=== PATIENT | female | born 1970 | race Caucasian/White ===

== ENCOUNTER → 2016-10-08 | Outpatient (CLI) | payer OTHER ==
[~2016-10-08] MED LIST: ALBUAER2 INH; LANS30CA12 PO; PRED10TA PO; TIOTCAP INH; TRAZ50TA35 PO; [UNRECOGNIZED DRUG - CODE] PO
== END | disposition home or self-care (01) ==
LOC: C.PAPS 13:45
PROVIDERS: ATTEND Obstetrics & Gynecology
DX: N87.0 Mild cervical dysplasia (principal)

== ENCOUNTER → 2017-04-08 | Outpatient (CLI) | payer OTHER | END | disposition home or self-care (01) | LOC: C.PAPS 11:36 | PROVIDERS: ATTEND Obstetrics & Gynecology | DX: N87.0 Mild cervical dysplasia (principal) ==

== ENCOUNTER → 2017-04-10 | Outpatient (CLI) | payer OTHER | END | disposition home or self-care (01) | LOC: C.RDSM 11:18 | PROVIDERS: ATTEND Family Medicine Sports Medicine | DX: M54.5 Low back pain (principal) ==

== ENCOUNTER → 2017-07-11 | Outpatient (CLI) | payer OTHER ==
--- NOTE | 2017-07-11 09:27 | DIAGNOSTIC IMAGING REPORT ---
LUMBAR SPINE W/O CONTRAST CLINICAL HISTORY: 46 years-old Female with CHRONIC WORSENING LOWER BACK PAIN. COMPARISON: Lumbar spine radiograph 04/10/2017. TECHNIQUE: Multiplanar, multi sequence MRI of the lumbar spine was performed without intravenous contrast. FINDINGS: Vertebral body heights are maintained without compression deformity. Alignment is satisfactory. There is no focal bone marrow edema, soft tissue edema, acute intra-abdominal or intrapelvic abnormality identified. Uterus demonstrates a 7 x 4 mm cystic lesion of the posterior mid myometrium which may reflect a subendometrial cyst. Discrete junctional zone is not well seen on these images. Conus medullaris terminates at L1. Signal within the cord is within normal limits. T12-L1: No central canal or neural foraminal stenosis. L1-L2: No central canal or neural foraminal stenosis. L2-L3: No central canal or neural foraminal stenosis. Mild ligamentum flavum thickening. L3-L4: Mild intervertebral disc space narrowing with disc desiccation, minimal posterior spondylitic spurring and broad-based posterior disc bulge with mild facet arthrosis and ligament of flavum thickening. There is mild central canal narrowing and mild bilateral inferior foraminal stenosis. L4-L5: Mild intervertebral disc space narrowing with disc desiccation and posterior spondylitic spurring. Broad-based posterior disc bulge flattens the ventral thecal sac and causes mild central canal narrowing. Mild facet arthrosis and ligament of flavum thickening. There is mild bilateral inferior foraminal narrowing. L5-S1: Mild posterior intervertebral disc space narrowing with posterior spondylitic spurring, broad-based posterior disc bulge, mild facet arthrosis and ligament of flavum thickening. No central canal or foraminal narrowing. IMPRESSION: 1. Mild intervertebral disc space narrowing with facet arthrosis and ligamentum flavum thickening with broad-based posterior disc bulges at L3-L4 and L4-L5 resulting in mild central canal and mild bilateral foraminal stenosis. 2. No significant degenerative changes are otherwise seen within the lumbar spine. No high-grade central canal or foraminal narrowing. 3. No focal bone marrow edema or fracture. The above report was generated using voice recognition software. It may contain grammatical, syntax or spelling errors. Electronically signed by: Julio Nj M.D. 07/11/2017 9:26 AM Dictated Date/Time: 07/11/2017 8:09 AM
== END | disposition home or self-care (01) ==
LOC: C.MRIBC 07:26
PROVIDERS: ATTEND Family Medicine Sports Medicine
DX: M54.5 Low back pain (principal); M47.816 Spondylosis without myelopathy or radiculopathy, lumbar region; M51.26 Other intervertebral disc displacement, lumbar region

== ENCOUNTER → 2017-07-24 | Outpatient (CLI) | payer OTHER ==
[2017-07-24 17:23] LABS: BASO % 0.1 %; BASO ABS # 0.01 K/uL (0-0.2); COMPLETE YES; EOS % 0.2 %; HEMATOCRIT 41.1 % (37-47); IG% 0.2 %; LYMPH ABS # 1.17 K/uL (1.2-3.4); MEAN CELL VOLUME 98.6 fL (80-100); MEAN CORPUSCULAR HEMOGLOBIN 32.6 pg (25-34); MEAN CORPUSCULAR HGB CONC 33.1 g/dl (32-36); MEAN PLATELET VOLUME 9.9 fL (7.4-10.4); MONO % 3.7 %; NEUT % 86.8 %; PLATELET COUNT 364 K/uL (130-400); RED BLOOD COUNT 4.17 M/uL (4.2-5.4); WHITE BLOOD COUNT 12.97 K/uL (4.8-10.8)
[2017-07-24 17:34] LABS: ALT/SGPT 17 U/L (12-78); BLOOD UREA NITROGEN 14 mg/dl (7-18); BUN/CREATININE RATIO 18.9 (10-20); CALCIUM 8.8 mg/dl (8.5-10.1); CARBON DIOXIDE 24 mmol/L (21-32); CHLORIDE 104 mmol/L (98-107); CHOLESTEROL 117 mg/dl (0-200); CREATININE 0.76 mg/dl (0.60-1.20); GLUCOSE 103 mg/dl (70-99); POTASSIUM 3.9 mmol/L (3.5-5.1); SODIUM 135 mmol/L (136-145); TRIGLYCERIDES 102 mg/dl (0-150); VERY LOW DENSITY LIPOPROT CALC 20 mg/dl
[2017-07-24 17:41] LABS: ALB/GLOB RATIO 0.9 (0.9-2); ALKALINE PHOSPHATASE 59 U/L (45-117); AST/SGOT 10 U/L (15-37); CHOLESTEROL/HDL RATIO 2.5; HDL CHOLESTEROL 46 mg/dl; LDL CHOLESTEROL CALCULATED 51 mg/dl; THYROID STIMULATING HORMONE 0.376 uIu/ml (0.300-4.500)
== END | disposition home or self-care (01) ==
LOC: C.LABBFT 11:58
PROVIDERS: ATTEND Physician Assistant Medical
DX: D72.829 Elevated white blood cell count, unspecified (principal)

== ENCOUNTER → 2017-09-01 | Outpatient (CLI) | payer OTHER ==
[2017-09-01 12:38] LABS: BASO % 0.4 %; BASO ABS # 0.03 K/uL (0-0.2); EOS % 0.4 %; EOS ABS # 0.03 K/uL (0-0.5); HEMATOCRIT 43.5 % (37-47); HEMOGLOBIN 14.5 g/dL (12.0-16.0); IG# 0.03 K/uL (0.00-0.02); LYMPH % 11.1 %; LYMPH ABS # 0.92 K/uL (1.2-3.4); MEAN CELL VOLUME 96.5 fL (80-100); MEAN CORPUSCULAR HEMOGLOBIN 32.2 pg (25-34); MEAN CORPUSCULAR HGB CONC 33.3 g/dl (32-36); MEAN PLATELET VOLUME 9.9 fL (7.4-10.4); MONO % 4.1 %; MONO ABS # 0.34 K/uL (0.11-0.59); NEUT % 83.6 %; NEUT ABS # 6.97 K/uL (1.4-6.5); PLATELET COUNT 326 K/uL (130-400); RED CELL DISTRIBUTION WIDTH CV 14.9 % (11.5-14.5); RED CELL DISTRIBUTION WIDTH SD 52.7 fL (36.4-46.3); WHITE BLOOD COUNT 8.32 K/uL (4.8-10.8)
[2017-09-01 12:57] LABS: BLOOD UREA NITROGEN 13 mg/dl (7-18); CALCIUM 9.4 mg/dl (8.5-10.1); CARBON DIOXIDE 24 mmol/L (21-32); CREATININE 0.71 mg/dl (0.60-1.20); GLUCOSE 96 mg/dl (70-99); POTASSIUM 3.7 mmol/L (3.5-5.1); SODIUM 139 mmol/L (136-145)
== END | disposition home or self-care (01) ==
LOC: C.LABBFT 08:56
PROVIDERS: ATTEND Physician Assistant Medical
DX: D72.829 Elevated white blood cell count, unspecified (principal)

== ENCOUNTER → 2017-09-12 | Outpatient (CLI) | payer OTHER ==
[~2017-09-12] MED LIST changes: +CETI10TA84 PO; +FLVHFA44 INH; +RANI300T2 PO; +UMEC1AER INH; +VNTHFA/IN INH
--- NOTE | 2017-09-15 07:40 | MAMMOGRAPHY REPORT ---
BILATERAL DIGITAL SCREENING MAMMOGRAM TOMOSYNTHESIS WITH CAD: 09/12/2017 CLINICAL HISTORY: Routine screening. Patient has no complaints. TECHNIQUE: Breast tomosynthesis in addition to standard 2D mammography was performed. Current study was also evaluated with a Computer Aided Detection (CAD) system. COMPARISON: Comparison is made to exams dated: 10/19/2015 mammogram, 05/19/2014 mammogram, 04/15/2013 ma mmogram, 09/03/2012 mammogram, 09/03/2012 ultrasound, and 01/21/2011 ultrasound - [facility]. BREAST COMPOSITION: The tissue of both breasts is heterogeneously dense, which may obscure small mas ses. FINDINGS: No suspicious masses, calcifications, or areas of architectural distortion are noted in ei ther breast. There has been no significant interval change compared to prior exams. Again noted are numerous small round/oval circumscribed and partially circumscribed masses scattered throughout both breasts, which are considered benign given the multiplicity and bilaterality and likely represent cys ts, with cysts seen on prior ultrasound exams. IMPRESSION: ACR BI-RADS CATEGORY 2: BENIGN There is no mammographic evidence of malignancy. A 1 year screening mammogram is recommended. The pa tient will receive written notification of the results. Approximately 10% of breast cancers are not detected with mammography. A negative mammographic report should not delay biopsy if a clinically suggestive mass is present. Rohini Betancourt M.D. /:09/12/2017 15:00:56 Wholesale Representative: Chelsie Lobo, [facility] letter sent: Normal 1/2 BI-RADS Code: ACR BI-RADS Category 2: Benign
== END | disposition home or self-care (01) ==
LOC: C.MAMM 08:33
PROVIDERS: ATTEND Obstetrics & Gynecology
DX: Z12.31 Encounter for screening mammogram for malignant neoplasm of breast (principal)

== ENCOUNTER → 2017-09-12 | Outpatient (CLI) | payer OTHER ==
--- NOTE | 2017-09-12 12:01 | DIAGNOSTIC IMAGING REPORT ---
TWO VIEW CHEST CLINICAL HISTORY: Cough. FINDINGS: PA and lateral chest radiographs are compared to study dated 10/16/2015. The cardiomediastinal silhouette is unremarkable. The lungs and pleural spaces are clear. There is no pneumothorax. The bony thorax appears intact. Fusion hardware is noted in the lower cervical spine. IMPRESSION: No active disease in the chest. Electronically signed by: Geovani Wild M.D. 09/12/2017 12:00 PM Dictated Date/Time: 09/12/2017 11:59 AM
== END | disposition home or self-care (01) ==
LOC: C.RAD1850 11:42
PROVIDERS: ATTEND Nurse Practitioner
DX: R05 Cough (principal)

== ENCOUNTER → 2017-09-18 | Outpatient (CLI) | payer OTHER ==
[~2017-09-18] MED LIST changes: -ALBUAER2 INH; +OXYC-57 PO; -PRED10TA PO; -TIOTCAP INH; -[UNRECOGNIZED DRUG - CODE] PO
== END | disposition home or self-care (01) ==
LOC: C.LAB1850 09:50
PROVIDERS: ATTEND Obstetrics & Gynecology
DX: Z01.818 Encounter for other preprocedural examination (principal)

== ENCOUNTER 2017-09-19 07:35 | Observation (INO) | payer OTHER ==
[2017-09-12 09:31] VITALS: Ht 149.9 cm; Wt 55.7 kg
--- NOTE | 2017-09-12 09:59 | PAT Medication Instructions ---
Service Date Sep 12, 2017. Current Home Medication List Albuterol Hfa (Ventolin Hfa), 2-4 PUFFS INH Q6H PRN for SOB/Wheezing Cetirizine (Zyrtec), 10 MG PO QPM Fluticasone Propionate (Flovent Hfa), 2 PUFFS INH BID Lansoprazole (Prevacid), 30 MG PO QAM Ranitidine Hcl (Zantac), 300 MG PO HS Trazodone Hcl (Trazodone), 50-100 MG PO HS Umeclidinium-Vilanterol (Anoro Ellipta 62.5-25 Mcg/INH), 1 PUFF INH QAM Medication Instructions For Your Scheduled Surgery - Take the following medications the morning of surgery with a sip of water: Umeclidinium-Vilanterol (Anoro Ellipta 62.5-25 Mcg/INH), 1 PUFF INH QAM Lansoprazole (Prevacid), 30 MG PO QAM Fluticasone Propionate (Flovent Hfa), 2 PUFFS INH BID Albuterol Hfa (Ventolin Hfa), 2-4 PUFFS INH Q6H PRN for SOB/Wheezing (if needed , and bring it with you to the hospital) - Take the following medications as scheduled the night before surgery: Ranitidine Hcl (Zantac), 300 MG PO HS Trazodone Hcl (Trazodone), 50-100 MG PO HS Albuterol Hfa (Ventolin Hfa), 2-4 PUFFS INH Q6H PRN for SOB/Wheezing (if needed) Cetirizine (Zyrtec), 10 MG PO QPM Fluticasone Propionate (Flovent Hfa), 2 PUFFS INH BID If you have any questions please call us at [phone] or [phone] or [phone]
[2017-09-12 10:37] LABS: BASO % 0.2 %; BASO ABS # 0.03 K/uL (0-0.2); EOS % 0.6 %; EOS ABS # 0.08 K/uL (0-0.5); HEMATOCRIT 43.6 % (37-47); HEMOGLOBIN 15.1 g/dL (12.0-16.0); IG# 0.04 K/uL (0.00-0.02); LYMPH % 8.1 %; MEAN CELL VOLUME 95.4 fL (80-100); MEAN CORPUSCULAR HGB CONC 34.6 g/dl (32-36); MEAN PLATELET VOLUME 9.7 fL (7.4-10.4); MONO % 2.1 %; MONO ABS # 0.28 K/uL (0.11-0.59); NEUT % 88.7 %; PLATELET COUNT 325 K/uL (130-400); RED CELL DISTRIBUTION WIDTH CV 15.1 % (11.5-14.5); RED CELL DISTRIBUTION WIDTH SD 52.6 fL (36.4-46.3); WHITE BLOOD COUNT 13.53 K/uL (4.8-10.8)
[2017-09-19] VITALS (9 sets, daily range): BP systolic 118–133; BP diastolic 70–86; PULSE 80–98; TEMP 36.7–37; O2SAT 94–98
[~2017-09-19] VITALS: Ht 149.9 cm; Wt 55.7 kg
[~2017-09-19 07:35] MED LIST changes: +ACETAMINOPHEN 1000 MG/100 ML IV IV ONE; +ATROPINE SULFATE 0.1 MG/ML 5ML SYR IV PRN; +CEFAZOLIN 2000MG IV PUSH 15 ML IV SCH; +EpHEDrine SULFATE INJ 50 MG/ML AMP IV PRN; +HYDROmorphone INJ 1 MG/ML SYR IV PRN; +LACTATED RINGER'S 1000ML 1,000 ML IV SCH; +ONDANSETRON INJ 2 MG/ML 2 ML VIAL IV PRN; -OXYC-57 PO; +PROMETHAZINE HCL INJ 12.5 MG in SODIUM CHLORIDE 0.9% 50ML 50 ML IV PRN; +ROCURONIUM BROMIDE 10 MG/ML 5 ML VIAL IV ONE
[2017-09-19] MEDS ORDERED: LIDOCAINE HCL 2% 2 ML VIAL (20MG/ML) ONE (09:17)
[2017-09-19] MEDS ORDERED: PROPOFOL IV EMULSION 10 MG/ML 20 ML VIAL IV ONE (09:17)
[2017-09-19] MEDS ORDERED: MIDAZOLAM HCL 1 MG/ML 2ML VIAL ONE (09:17)
[2017-09-19] MEDS ORDERED: FENTANYL CITRATE INJ 50 MCG/1 ML 2 ML VIAL ONE ×3 (09:17→12:50)
[2017-09-19] MEDS ORDERED: ROCURONIUM BROMIDE 10 MG/ML 5 ML VIAL IV ONE (09:17)
--- NOTE | 2017-09-19 10:37 | History & Physical Bridge Note ---
H&P Re-Evaluation Bridge Note: I have examined the patient, reviewed the History & Physical and in the interval since the performance of the History & Physical I have noted the following changes of clinical significance: No changes noted
[2017-09-19] MEDS ORDERED: BUPIVACAINE 0.5 % 5 MG/1 ML MPF 30ML VIAL ONE (10:41)
[2017-09-19] MEDS ORDERED: METHYLENE BLUE 0.5% 10 ML VIAL ONE (10:41)
[2017-09-19] MEDS ORDERED: DEXAMETHASONE SOD INJ 4 MG/ML VIAL ONE (12:03)
[2017-09-19] MEDS ORDERED: LABETALOL HCL IV 5 MG/ML 20ML IV ONE (12:03)
[2017-09-19] MEDS ORDERED: SUCCINYLCHOLINE 100MG/5ML SYR IV ONE (12:03)
[2017-09-19] MEDS ORDERED: NEOSTIGMINE METHYLSULFATE 5 MG/5 ML SYR ONE (12:03)
[2017-09-19] MEDS ORDERED: ONDANSETRON INJ 2 MG/ML 2 ML VIAL ONE (12:03)
[2017-09-19] MEDS ORDERED: GLYCOPYRROLATE INJ 0.2 MG/ML VIAL ONE (12:03)
[2017-09-19] MEDS ORDERED: ALBUTEROL HFA INHALER 8.5 GM INH ONE (12:16)
[2017-09-19] MEDS ORDERED: KETOROLAC TROMETHAMINE 30 MG/ML VIAL IV. PRN (12:30)
[2017-09-19] MEDS ORDERED: OXYCODONE/ACETAMINOPHEN 5-325 TAB PO PRN ×2 (12:30)
[2017-09-19] MEDS ORDERED: IBUPROFEN 600 MG TAB PO PRN (12:30)
[2017-09-19] MEDS ORDERED: SIMETHICONE 80 MG CHEW PO PRN (12:30)
[2017-09-19] MEDS ORDERED: ACETAMINOPHEN 325 MG TAB PO PRN (12:30)
[2017-09-19] MEDS ORDERED: MEPERIDINE HCL 50 MG/ML CARP IV PRN ×2 (12:30)
--- NOTE | 2017-09-19 12:30 | [facility] Post Operative Brief Note ---
Immediate Operative Summary Operative Date Sep 19, 2017. Pre-Operative Diagnosis Dysmenorrhea, Female Pelvic Pain Post-Operative Diagnosis Dysmenorrhea, Female Pelvic Pain Procedure(s) Performed Total Laparoscopic Hysterectomy, Bilateral salpingectomy, Cystoscopy Surgeon Dr. Batsheva Knowles Miller Apprentice Surgeon(s) Dr. Arsalan Beckford Estimated Blood Loss 25 mL Findings See Below see op report Fluids (cc crystalloids) 1300 Specimens Permanent specimens A. Uterus, cervix, and bilateral fallopian tubes Drains flores Anesthesia Type General Complication(s) none Disposition Accompanied Pt To Recover: yes Disposition: Surgical ICU
[2017-09-19] MEDS ORDERED: OXYC-57 PO ×2 (12:33)
--- NOTE | 2017-09-19 12:34 | Discharge Instructions ---
Discharge Instructions Date of Service Sep 19, 2017. Admission Reason for Admission: Dysmenorrhea, Pelvic Pain, Cervix Dysplasia, Low G Discharge Discharge Diagnosis / Problem: s/p total laproscopid hysterectomy, removal of tubes, cystoscopy Discharge Goals Goal(s): Specific Goal(s) Activity Recommendations Activity Limitations: per Instructions/Follow-up section . Instructions / Follow-Up Instructions / Follow-Up POST OPERATIVE: BOWEL FUNCTION/MEDICATIONS: 1. Constipation pain and discomfort are the most common complaints 5-7 days after surgery. Points 2-6 address the things that can help. 2. Chewing gum can help stimulate the gut and help improve digestion and motility. 3. Milk of Magnesia 1-2 times per day until return of bowel function. 4. Colace is a stool softener that helps. Taking this 2-3 times per day until bowel function returns to normal is highly recommended. 5. Dulcolax is a laxative that may be used if several days have passed without a bowel movement. Alternatively Miralax may be used daily instead. 6. Drink plenty of fluids as this will also reduce constipation. 7. Narcotic pain medications will be prescribed by your physician. They are safe to use and we encourage you to use them. If you are not allergic, ibuprofen will also be prescribed. Many patients will be able to transition off of the narcotic medications to ibuprofen by postoperative day 3. ACTIVITY RECOMMENDATIONS: 1. Get plenty of rest and listen to your body. If you are tired, take a nap. 2. You may shower, but do not take a tub bath until you see your doctor at the 2 week post operative visit. 3. Absolutely NO intercourse and nothing in the vagina until you are examined by your doctor at the 6 week visit. At that visit it will be determined when such activities can be resumed. This can range from 6-12 weeks after your surgery depending on healing time. 4. The main physical activity in the first week should be walking. By the second week you can slowly increase activity. There are no limits on walking up and down stairs. 5. Do not lift more than 5-10 lbs for 4 weeks. Remember the "one-handed rule", i.e. if you can lift something with only one hand it's likely okay. 6. Minimize transformation coach like vacuuming and exercising for 4 weeks. "Overdoing it" can lead to incisions not healing, pain and vaginal bleeding , so again, listen to your body. 7. Driving can be resumed when you feel able. Do not drive within 24 hours of taking a narcotic medication. EXPECTATIONS: 1. Vaginal spotting, bleeding and discharge are common after surgery. There may even be an odor to the discharge which is often related to sutures used in the vagina. If you experience heavy vaginal bleeding, call the office number day or night [phone]. 2. Bladder discomfort is common after surgery from the catheter. This usually resolves in 1-2 weeks. 3. By the end of the 3rd or 4th week you should be feeling much better. It may take up to 6 weeks for your energy levels to return to normal. 4. Narcotic medications have side effects such as: dizziness, headache, nausea and/or vomiting. If you suspect your pain medication is causing problems, call our office and we may be able to prescribe an alternate medication. 5. The skin incisions are often covered with a liquid bandage. This will gradually peel off over time. CALL THE OFFICE IF YOU HAVE ANY OF THE FOLLOWIN. Temperature of 101 degrees or higher. 2. Severe abdominal or pelvic pain not relieved by pain medication. 3. Persistent nausea or vomiting. 4. Increased pain with urination or difficulty urinating. 5. Bright red bleeding that soaks more than 1 pad per hour. CONTACT PHONE NUMBERS: Main Office: [phone] Surgical Nurse: [phone] extension [phone] Avoid all tobacco products. If you need help to stop smoking, call [place]'s FREE QUITLINE at . This is a free call. Current Hospital Diet Patient's current hospital diet: Discharge Diet Recommended Diet: Regular Diet Procedures Procedures Performed: Total Laparoscopic Hysterectomy, Bilateral salpingectomy, Cystoscopy Pending Studies Studies pending at discharge: no Laboratory Results Lipid Panel Test 07/24/17 12:03 Range/Units Triglycerides Level 102 0-150 mg/dl Cholesterol Level 117 0-200 mg/dl HDL Cholesterol 46 mg/dl Cholesterol/HDL Ratio 2.5 LDL Cholesterol, Calculated 51 mg/dl Medical Emergencies . Who to Call and When: Medical Emergencies: If at any time you feel your situation is an emergency, please call 911 immediately. . Non-Emergent Contact Non-Emergency issues call your: Gear Nicker . . "Provider Documentation" section prepared by Batsheva Knowles. . VTE Core Measure Inpt VTE Proph given/why not?: Treatment not indicated [place] Drug Monitoring Program Search Results: patient reviewed within database, no issues identified
[2017-09-19] MEDS ORDERED: HYDROmorphone INJ 1 MG/ML SYR ONE (12:49)
[2017-09-19] MEDS: FENTANYL CITRATE INJ 50 MCG/1 ML 2 ML VIAL IV PRN ×4 (12:50→13:05)
[2017-09-19] MEDS ORDERED: IV FLUIDS COMPLETED PRN (13:45)
[2017-09-19] MEDS ORDERED: LACTATED RINGER'S 1000ML 1,000 ML IV SCH (14:00)
--- NOTE | 2017-09-19 14:40 | Anesthesiology Progress Note ---
Anesthesia Post Op Note Date & Time Sep 19, 2017 at 14:40 Vital Signs Pain Intensity: 8.0 Vital Signs Past 12 Hours Date Time Temp Pulse Resp B/P (MAP) Pulse Ox O2 Delivery O2 Flow Rate FiO2 09/19/17 13:21 36.4 09/19/17 13:20 86 20 09/19/17 13:20 86 20 97 09/19/17 13:16 114/84 09/19/17 13:15 89 17 09/19/17 13:15 92 17 94 09/19/17 13:11 94/84 09/19/17 13:10 92 09/19/17 13:10 92 18 92 09/19/17 13:05 88 20 97 09/19/17 13:05 88 20 09/19/17 13:01 127/86 09/19/17 13:00 83 16 09/19/17 13:00 84 16 100 09/19/17 12:56 131/76 09/19/17 12:55 75 15 98 09/19/17 12:55 75 15 09/19/17 12:51 134/86 09/19/17 12:50 75 23 94 09/19/17 12:50 75 23 09/19/17 12:47 134/83 09/19/17 12:40 36.8 84 20 140/91 100 Nasal Cannula 3 09/19/17 08:03 36.9 89 18 128/86 (100) 95 Room Air Notes Mental Status: alert / awake / arousable, participated in evaluation Pt Amnestic to Procedure: Yes Nausea / Vomiting: adequately controlled Pain: adequately controlled Airway Patency, RR, SpO2: stable & adequate BP & HR: stable & adequate Hydration State: stable & adequate Anesthetic Complications: no major complications apparent
--- NOTE | 2017-09-19 20:07 | OPERATIVE REPORT ---
DATE OF OPERATION: 09/19/2017 PREOPERATIVE DIAGNOSES: 1. Pelvic pain. 2. Failed ablation. POSTOPERATIVE DIAGNOSES: Same. PROCEDURE: 1. Total laparoscopic hysterectomy using da Jose Luis assist. 2. Cystoscopy. SURGEON: Dr. Knowles. TOOL MARKER: Dr. Beckford. ESTIMATED BLOOD LOSS: 25 mL FLUIDS: 1300 mL URINE OUTPUT: 500 mL clear yellow urine drained from the bladder at the end of the procedure. INDICATIONS: The patient had an ablation approximately 3 years ago from one of my partners who has since left. It worked well for a year, but subsequently in the last 1-2 years, she has had increasing pelvic pain and some dysfunctional bleeding. She desires definitive surgical management. FINDINGS: Normal uterus, tubes and ovaries were noted bilaterally. COMPLICATIONS: None. DRAINS: Begum. DISPOSITION: To recovery room in stable condition. PROCEDURE IN DETAIL: The patient was taken to the operating room where she was identified verbally and by bracelet. She was placed in the dorsal lithotomy position on the operating table where general anesthetic was induced without difficulty. Her legs were then placed in Yellofin stirrups. Her arms were carefully tucked and draped at her side. Her chest was protected. The heading saw operator was placed and the patient was prepped and draped in normal sterile fashion. Timeout was held identifying correct patient, procedure, positioning, allergies and preoperative antibiotic. Attention was turned to the vagina where a speculum was placed after a Begum catheter had been placed. The anterior lip of the cervix was grasped with a single tooth tenaculum. The uterus was sounded to approximately 5 cm, it was dilated to 23 Steffanie dilator. The VCare uterine manipulator was placed into probably cervix and lower uterine segment and the green cup was sutured x1 at 9 o'clock to the cervix. Gloves were then changed and attention was turned to the abdomen where an infraumbilical incision was made with a knife. Veress needle was placed through this, opening pressure of 5 mmHg. The abdomen was insufflated with 3 liters of carbon dioxide gas. A 12 mm optical trocar was placed through this incision and direct intraabdominal placement was confirmed via laparoscope. The patient was placed into deep Trendelenburg and then 2 bilateral lower quadrant 8 mm da Jose Luis trocars were placed in the left upper quadrant and 10 mm accessory trocar. The da Jose Luis surgical garment inspector device was hooked to the patient and the studio technician video operator proceeded to the console. First on the right and then on the left the distal tubal stumps were removed from the ovary and passed out through the accessory trocar. The tubo-ovarian and round ligament were cauterized and cut using hot michael. A bladder flap was created anteriorly using scissors. The uterine arteries, first on the left and then on the right were skeletonized, cauterized and cut with scissors. Bladder flap was further created. When the bladder was down, the colpotomy was made with hot michael and completed in 365 degrees. The uterine specimen was then removed from the uterus. The cuff was then closed with 2-0 V-Loc suture. Attention was then turned to cystoscopy where with a 70-degree scope, the bladder was visualized, there were no lesions or stitches in the bladder. The ureters were evaluated bilaterally and found to be effluxing urine. The previous Begum catheter was removed and discarded, and a new Begum catheter was placed. This terminated the robot part of the procedure. The robot was disconnected. The patient was laid flat. The gas was released from the abdomen. The trocars were removed. A deep stitch was placed in the supraumbilical incision of 0 Vicryl. All incisions were then closed with 4-0 Vicryl in a subcuticular fashion. The incisions were infiltrated with 0.5% Marcaine. The procedure was thus terminated. All sponge, lap and needle counts were correct x2. The patient tolerated the procedure well and was taken to recovery room in stable condition. I attest to the content of the Intraoperative Record and any orders documented therein. Any exception s are noted below.
--- NOTE | 2017-09-22 08:00 | DISCHARGE SUMMARY ---
ADMISSION DIAGNOSES: 1. Pelvic pain. 2. Dysmenorrhea. 3. Failed ablation. DISCHARGE DIAGNOSES: Same. PROCEDURES: Laparoscopic assisted vaginal hysterectomy with bilateral salpingectomies and cystoscopies. HISTORY OF PRESENT ILLNESS: The patient is a 46-year-old white female with tubal ligation for control and a history of endometrial ablation and DORETHA 1. In 2013, she had an ablation for dysmenorrhea and menorrhagia. She was good for about 1 year, but over the past 1-2 years, her symptoms worsened. She started with some spotting and mild pain. She notes her bleeding is worsened both in intensity in time, notes daily pain now. She has had over the counter meds without relief. She attempted 1 dose of Depo-Provera for management, noted GI bleeding every day and subsequently pain. She now desires a hysterectomy. She wants to keep her ovaries. Her last 2 Paps have been normal. She smokes a pack of cigarette a day so is not a candidate for estrogen. History of MRSA in the past and has had history of 2 negative cultures per her report. She has been taking Vicodin for chronic back pain. She and her primary doctor are hopeful that the hysterectomy will improve her back pain. We did discuss in detail that this may not be the case. For the rest of the patient's detailed history and physical, see her dictated history and physical. ASSESSMENT: This is a patient with dysmenorrhea, female pelvic pain and failed ablation and we planned hysterectomy with bilateral salpingectomies and cystoscopy with maintenance of ovaries if normal. HOSPITAL COURSE: The patient was admitted and she underwent a total laparoscopic hysterectomy with bilateral salpingectomy and cystoscopy. ESTIMATED BLOOD LOSS: 25 mL. FINDINGS: At the time of surgery, revealed normal distal tubes, proximal tubes were removed. Normal ovaries bilaterally. Normal uterus. There were multiple diverticula throughout the colon noted. The patient's hospital course was uncomplicated. She tolerated a regular diet, tolerated oral pain meds, voided after the removal of her Begum catheter and was able to ambulate. She was discharged home with a small script of Percocet for pain management as well as [id number] ibuprofen. She will return in 2 weeks for postoperative evaluation. Discharge instructions were given to the patient.
== END 2017-09-19 17:25 | disposition home or self-care (01) ==
LOC: C.ACU 07:35 → C.MS4N 07:40 → ENRESERV 13:15
PROVIDERS: ADMIT Obstetrics & Gynecology; ATTEND Obstetrics & Gynecology
DX: N94.6 Dysmenorrhea, unspecified (principal); N80.0 Endometriosis of uterus; R10.2 Pelvic and perineal pain; K21.9 Gastro-esophageal reflux disease without esophagitis; J44.9 Chronic obstructive pulmonary disease, unspecified; F41.8 Other specified anxiety disorders; F17.200 Nicotine dependence, unspecified, uncomplicated; G25.81 Restless legs syndrome; Z80.49 Family history of malignant neoplasm of other genital organs; Z80.0 Family history of malignant neoplasm of digestive organs; Z80.3 Family history of malignant neoplasm of breast; Z83.49 Family history of other endocrine, nutritional and metabolic diseases; Z79.899 Other long term (current) drug therapy
CPT/HCPCS: 58570; S2900

== ENCOUNTER → 2017-12-17 | Outpatient (CLI) | payer OTHER ==
[~2017-12-17] MED LIST changes: -ACETAMINOPHEN 1000 MG/100 ML IV IV ONE; -ATROPINE SULFATE 0.1 MG/ML 5ML SYR IV PRN; -CEFAZOLIN 2000MG IV PUSH 15 ML IV SCH; -EpHEDrine SULFATE INJ 50 MG/ML AMP IV PRN; -HYDROmorphone INJ 1 MG/ML SYR IV PRN; -LACTATED RINGER'S 1000ML 1,000 ML IV SCH; -ONDANSETRON INJ 2 MG/ML 2 ML VIAL IV PRN; +OXYC-57 PO; -PROMETHAZINE HCL INJ 12.5 MG in SODIUM CHLORIDE 0.9% 50ML 50 ML IV PRN; -ROCURONIUM BROMIDE 10 MG/ML 5 ML VIAL IV ONE
--- NOTE | 2017-12-17 15:08 | MAMMOGRAPHY REPORT ---
UNILATERAL LEFT DIGITAL DIAGNOSTIC MAMMOGRAM TOMOSYNTHESIS WITH CAD AND TARGETED LEFT ULTRASOUND: 12/17 CLINICAL HISTORY: 47-year-old woman presents after she noticed a small firm lump in the 4:00 left chloe ast approximately 3 months ago. She reports it has not changed in size since it first became evident . No focal pain, skin erythema or thickening. Note left breast nipple discharge. TECHNIQUE: Left breast tomosynthesis in addition to standard 2D mammography was performed. Current st udy was also evaluated with a Computer Aided Detection (CAD) system. COMPARISON: Comparison is made to exams dated: 09/12/2017 mammogram, 10/19/2015 mammogram, 05/19/2014 ma mmogram, 04/15/2013 mammogram, 09/03/2012 mammogram, and 09/03/2012 ultrasound - [facility]. BREAST COMPOSITION: The tissue of the left breast is heterogeneously dense, which may obscure small masses. FINDINGS: A triangular palpable marker overlies the 3:00 to 4:00 middle one third of the left breast, denoting the palpable lump pointed out by the patient. There is no obvious new mass, asymmetry, are a of distortion or calcification in the area of concern or elsewhere throughout the visualized left b reast. No focal skin thickening appreciated. Further evaluation with ultrasound was performed. Targeted ultrasound was performed over the lump in the 4:00 left breast which was pointed out by the patient. On palpation, there is an easily palpated superficial firm ovoid 5 mm mass. On ultrasound, there is a lobulated and circumscribed parallel predominantly anechoic cystic-appearing mass with po sterior acoustic enhancement and some internal debris, measuring 4.8 x 2.8 x 3.1 mm. Although this m ost likely represents a complicated cyst, given that it is also palpable and does not fit the criteri a for a benign simple cyst, definitive characterization with ultrasound-guided cyst aspiration is rec ommended. If it does not aspirate to resolution then ultrasound-guided core biopsy should be perform ed. IMPRESSION: ACR BI-RADS CATEGORY 4: SUSPICIOUS, TARGETED ULTRASOUND ACR BI-RADS CATEGORY 4: SUSPICIO US 1. The palpable lump in the 4:00 left breast, which was pointed out by the patient, is thought to cor respond to a complicated 4.8 mm cyst on ultrasound. Definitive characterization with ultrasound-guid ed cyst aspiration is recommended. If it does not completely aspirate to resolution, ultrasound-guid ed core biopsy should be performed. These results and recommendations were discussed with the patient at the time of the exam. She tenta tively scheduled the left breast procedure prior to leaving our department. Approximately 10% of breast cancers are not detected with mammography. A negative mammographic report should not delay biopsy if a clinically suggestive mass is present. Kiera Hill M.D. ay/:12/17/2017 09:00:17 Critical Care Rn: Chelsie Lobo, [facility] letter sent: Abnormal 4/5 BI-RADS Code: ACR BI-RADS Category 4: Suspicious Ultrasound BI-RADS: ACR BI-RADS Category 4: Suspici ous
== END | disposition home or self-care (01) ==
LOC: C.MAMM 07:58
PROVIDERS: ATTEND Obstetrics & Gynecology
DX: N63.20 Unspecified lump in the left breast, unspecified quadrant (principal); N60.02 Solitary cyst of left breast

== ENCOUNTER → 2017-12-22 | Outpatient (CLI) | payer OTHER ==
--- NOTE | 2017-12-22 08:35 | Discharge Instructions ---
Discharge Instructions Procedure Procedure Date: December 22, 2017. Reason for visit: Left Breast Cyst. Discharge Discharge Date: December 22, 2017. Discharge Diagnosis: post left breast ultrasound guided cyst aspiration Instructions Activity Recommendations: Additional Limitations (see below) Return to School/Work: no limitations Recommended Home Diet: No Limitations Provider Instructions: ACTIVITY RECOMMENDATIONS: * Rest today. * Resume regular activity in one day. MEDICATIONS: * May take Tylenol or Ibuprofen as needed for pain. DIET: * Resume previous diet. SPECIAL CARE INSTRUCTIONS: Call your doctor if: * Temperature above 101 degrees F. * Pain not relieved by pain medicine ordered. * Increased drainage or redness from incision. * Increasing chest pain or shortness of breath. * Notify your doctor with any questions or concerns. * If you have specific questions or concerns for Breast Radiology, please call us at during normal business hours or Dr. Hill after hours at . FOLLOW UP VISIT: Follow-up with Referring Physician as scheduled. Allergies Coded Allergies: No Known Allergies (Verified , 09/19/17) Lorraine Mendieta Recommendations: Call your doctor if: * Temperature above 101 degrees * Pain not relieved by pain medicine ordered * There is increased drainage or redness from any incision * You have any unanswered questions or concerns. Your Doctors Instructions noted above were prepared by provider Kiera Hill. Patient Signature Section: Patient Instructions Signature Page Meseret Agrawal Patient (or Guardian) Signature/Date: I have read and understand the instructions given to me by my caregivers. Caregiver/RN/Doctor Signature/Date: The above-named patient and/or guardian has received patient instructions on this date. + Original Patient Signature Page (only) stays with chart. Please make copy for patient.
--- NOTE | 2017-12-22 15:23 | MAMMOGRAPHY REPORT ---
ASPIRATION LEFT BREAST: 12/22/2017 CLINICAL HISTORY: 47-year-old woman presented on 12/17/2017 with a small superficial palpable mass in t he 4:00 left breast, thought to represent a complicated cyst on ultrasound. She presents for ultraso und-guided cyst aspiration to ensure resolution and for cytologic analysis. COMPARISON: Comparison is made to exams dated: 12/17/2017 ultrasound, 12/17/2017 mammogram, 09/12/2017 hina mogram, 10/19/2015 mammogram, 05/19/2014 mammogram, and 04/15/2013 mammogram - [facility]. PATIENT CONSENT: After explaining the risks, benefits and alternatives of the procedure to the patien t, informed consent was obtained verbally and in writing. Specific risks include: bleeding, infection and puncture of adjacent structure. A time out was preformed and the left breast was agreed as the s ite for attempted cyst aspiration. PROCEDURE DESCRIPTION: The hypoechoic cystic appearing mass in the 4:00 left breast was identified an d targeted for aspiration. The skin of the left breast was cleansed with Betadine and sterile drapes were placed. 1% lidocaine was administered subcutaneously and intraparenchymally as local anesthesia . A 22 gauge needle was advanced into the mass and aspiration was performed. The mass immediately re solved completely, confirming cystic nature. Approximately 1 cc of clear, straw-colored fluid was ri nsed in CytoLyt and sent to the pathology department for cytologic analysis. Postprocedure mammograp hy was deferred given that the cyst was not well identified mammographically and best seen on ultraso und. As long as cytology results are benign, would recommend return to annual screening mammography schedule. IMPRESSION: ASPIRATION Status post aspiration to resolution of a small, 4 mm palpable complicated cyst in the 4:[address] The fluid was sent to the pathology department for cytologic analysis. The patient will receive notification of the cytology results from her referring physician. Kiera Hill M.D. ay/:12/22/2017 09:55:22 Chief Operator: Marcin WHITE)(Fatou), [facility]
== END | disposition home or self-care (01) ==
LOC: C.MAMM 08:01
PROVIDERS: ATTEND Obstetrics & Gynecology
DX: N60.02 Solitary cyst of left breast (principal)

== ENCOUNTER 2019-10-26 05:37 | Observation (INO) ==
--- NOTE | 2019-10-25 08:32 | Anesthesiology Consultation ---
Date of Service October 25, 2019 Assessment & Plan (1) Encounter for pre-operative examination: Chart Review Chart Review: Acceptable Risk for Surgery (pending preop labs) and Patient NOT seen in Pre Admission Testing History Surgery Operation Date: 10/26/19 07:00 Proposed Procedures p Laparoscopic Cholecystectomy with Cholangiogram, Possible Open with Cholecystectomy - Mikey Monreal MD Height/Weight Height: 4 ft 11.5 in Weight: 54.885 kg Allergies Allergy/AdvReac Type Severity Reaction Status Date / Time No Known Drug Allergies Allergy Verified 10/22/19 13:57 Medications Home Medications Medication Instructions Recorded Confirmed Last Taken gabapentin 200 mg PO TID 04/02/19 10/22/19 Unknown famotidine 20 mg tablet 20 mg PO BID 30 Days #60 tab 07/29/19 10/22/19 Unknown albuterol sulfate 90 mcg/actuation 2 puff INHALATION QID PRN #18 gm 09/10/19 10/22/19 Unknown aerosol inhaler fluticasone propionate 110 2 puffs INH BID #36 gm 09/22/19 10/22/19 Unknown mcg/actuation HFA aerosol inhaler cetirizine 10 mg tablet 10 mg PO DAILY #30 tab 10/01/19 10/22/19 Unknown lansoprazole [Prevacid] 30 mg PO QAM 10/22/19 10/22/19 Unknown trazodone 50 mg PO HS 10/22/19 10/22/19 Unknown umeclidinium-vilanterol [Anoro 1 puffs INH QAM 10/22/19 10/22/19 Unknown Ellipta] Past Medical History Medical History Anxiety Asthma stable Cholelithiases Chronic back pain Chronic obstructive pulmonary disease Diverticular disease GERD (gastroesophageal reflux disease) Osteoarthritis Past Family History Family History Grandmother (Maternal) Breast cancer Colorectal cancer Cancer Mother Hypertension Other No family history of adverse response to anesthesia Past Surgical History Surgical History History of bilateral tubal ligation History of bladder suspension procedure AUG 2018, [facility]. [facility] History of cervical discectomy History of colonoscopy 1999 & 2005 History of esophagogastroduodenoscopy (EGD) S/P hernia surgery INCISIONAL HERNIA REPAIR= 06/18/18= MAC SEDATION AT [facility] S/P laparoscopic hysterectomy 09/2017 Social History Smoking Status: Current every day smoker tobacco type: cigarettes Smoking cigarettes per day: 1 PPD Do You Dip or Chew Tobacco: No Hx Alcohol Use: Yes Alcohol type: hard liquor alcohol intake frequency: a few times a week Hx Substance Use: No substance use type: does not use Testing Chest X-Ray Date: 06/03/19 The lungs appear hyperinflated and hyperlucent with flattening the diaphragm and increased retrosternal clear space. This suggests obstructive physiology. There is no airspace consolidation or pleural effusion. There is no pneumothorax. The bony thorax appears intact. Fusion hardware is noted in the lower cervical spine. IMPRESSION: Emphysema is change with no active disease in the chest. Pulmonary Function Test Date: 06/08/19 Spirometry consistent with mild obstructive pattern. Repeat study done following bronchodilator showed no significant change in function. Comparison with prior study done 07/06/18 shows there has been a modest decline in both forced and vital capacity and FEV1.
[2019-10-26] MEDS ORDERED: LR 15ML/HR IV SCH (06:00)
--- NOTE | 2019-10-26 06:30 | History & Physical Bridge Note ---
Date of Service October 26, 2019 History & Physical Bridge Note I have examined the patient, reviewed the History & Physical and in the interval since the performance of the History & Physical I have noted the following changes of clinical significance: no changes noted all questions answered SO to be here later
[2019-10-26] MEDS ORDERED: CONRAY 60% 50 ML VIAL ONE (06:40)
[2019-10-26] MEDS ORDERED: LIDOCAINE/EPINEPHRINE 1% 20 ML VIAL ONE (06:40)
[2019-10-26] MEDS ORDERED: fentaNYL citrate 100 MCG/2 ML VIAL ONE ×3 (06:49→08:50)
[2019-10-26] MEDS ORDERED: MIDAZOLAM HCL 1 MG/ML 2ML VIAL ONE (06:49)
[2019-10-26] MEDS ORDERED: ePHEDrine sulfate 50 MG/ML AMP IV PRN (06:50)
[2019-10-26] MEDS ORDERED: PHENYLEPHRINE 100MCG/ML 5ML SYR IV PRN (06:50)
[2019-10-26] MEDS ORDERED: LABETALOL HCL IV 5 MG/ML 20ML IV PRN (06:50)
[2019-10-26] MEDS ORDERED: ATROPINE SULFATE 0.1 MG/ML 10ML SYR IV PRN (06:50)
[2019-10-26] MEDS ORDERED: ONDANSETRON INJ 2 MG/ML 2 ML VIAL IV PRN ×2 (06:50→10:34)
[2019-10-26] MEDS ORDERED: MEPERIDINE HCL 25 MG/ML CARP/VIAL IV PRN (06:50)
[2019-10-26] MEDS ORDERED: GLUCAGON FOR INJ 1 MG VIAL ONE (07:55)
--- NOTE | 2019-10-26 08:28 | Fluoroscopy Report ---
FL cholangiogram OR HISTORY: Post cholecystectomy. FLUOROSCOPY TIME: 6 seconds. FINDINGS: Fluoroscopy was provided for an intraoperative cholangiogram status post cholecystectomy. C ontrast was injected through the cystic duct remnant. Mild prominence of the common bile duct. The bi liary ductal system shows no well-defined filling defect. No evidence for contrast extension to the small bowel. There is no intrahepatic bile duct dilatation. IMPRESSION: 1. Fluoroscopy provided for an intraoperative cholangiogram status post cholecystectomy. 2. No filling defects within the common bile duct. 3. Contrast flowing to the small bowel is not confirmed on this exam. ACT 112: Negative or not required by law. The above report was generated using voice recognition software. It may contain grammatical, syntax or spelling errors. Electronically signed by: Ventura Trinh M.D. 10/26/2019 8:27 AM
[2019-10-26] MEDS ORDERED: PROPOFOL IV EMULSION 10 MG/ML 20 ML VIAL IV ONE (08:30)
[2019-10-26] MEDS ORDERED: LARYING-O-JET KIT (LTA) ONE (08:30)
[2019-10-26] MEDS ORDERED: ROCURONIUM BROMIDE 10 MG/ML 5 ML VIAL ONE (08:30)
[2019-10-26] MEDS ORDERED: ONDANSETRON INJ 2 MG/ML 2 ML VIAL ONE (08:30)
[2019-10-26] MEDS ORDERED: NEOSTIGMINE METHYLSULFATE 5 MG/5 ML SYR ONE (08:30)
[2019-10-26] MEDS ORDERED: LIDOCAINE HCL 2% 2 ML VIAL/AMP(20MG/ML) INFIL ONE (08:30)
[2019-10-26] MEDS ORDERED: GLYCOPYRROLATE 0.2 MG/ML VIAL ONE (08:30)
[2019-10-26] MEDS ORDERED: DEXAMETHASONE SOD INJ 4 MG/ML VIAL ONE (08:30)
--- NOTE | 2019-10-26 08:38 | Post Operative Brief Note ---
PG Immediate Post Op with CF Date of Surgery October 26, 2019 Pre & Post Diagnosis Operation Date: 10/26/19 07:00 Pre-Op Diagnosis: Cholelithiasis Post-Op Diagnosis: Cholelithiasis I identified the patient and participated in the time-out.: Yes Procedure Operation Date: 10/26/19 07:00 Actual Procedures p Laparoscopic Cholecystectomy with Cholangiogram(Not Applicable) - Mikey Monreal MD Surgeon Mikey Monreal MD Consolidator evette webber Estimated Blood Loss 5 Findings Consistent with Post-Op Diagnosis Specimens Specimen Description: A. gallbladder and contents Drains Yusef-Gifford Drain (19f catalina)
[2019-10-26] MEDS: fentaNYL citrate 100 MCG/2 ML VIAL IV PRN ×4 (09:07→09:26)
--- NOTE | 2019-10-26 09:12 | Operative Report ---
PG Post Operative Report Pre & Post Diagnosis Operation Date: 10/26/19 07:00 Pre-Op Diagnosis: Cholelithiasis Post-Op Diagnosis: Cholelithiasis I identified the patient and participated in the time-out.: Yes Procedure Operation Date: 10/26/19 07:00 Actual Procedures p Laparoscopic Cholecystectomy with Cholangiogram(Not Applicable) - Mikey Monreal MD Patient was brought into the operating theater general endotracheal anesthesia the abdomen was prepped byline solution properly draped timeout was had patient was identified this point a small incision was made infraumbilically followed by Veress needle followed by CO2 after achieving approximately 15 mmHg pressure we placed a 3 mm trocar without any difficulty followed by 3 mm scope point of interest bacteroids identified on direct visualization we placed a 5 mm epigastric and 2 3 mm subcostal port with preemptive local analgesic placed the camera right upper quadrant port site to visualize initial entry and umbilical area and no adhesions the abdominal wall were identified this point the gallbladder was placed under traction and especially contracted intrahepatically we are able to elevate its at the fundus and dissected out towards the triangle JURGEN of note when we elevated the gallbladder we could see a markedly dilated common bile duct our dissection was difficult starting at the neck of the gallbladder since a significant longstanding chronic inflammation we were able to stay away from the common bile duct and we eventually were able to encircle around the cystic duct few small vessels were inferior and superior the cystic duct was clipped once we get around the cystic duct a 5 mm clip chute tender was placed and actually we milked the cystic duct towards the gallbladder so we could apply the clip chute tender which was long enough to clamp the cystic duct although no excessive length small opening cystic duct was made #4 urethral catheter transversing abdominal wall was positioned once we had made the opening cystic duct there was normal bowel not under pressure we then placed the Cholangiocath took series x-rays which showed complete obstruction of the common bile duct could not see the duodenum and a certainly was dilated there was certainly no filling defects appreciated per se but nothing went into the duodenum at this point I gave 1 mg of glucagon and try to flush the duct and still there was no flow after that into the duodenum this point I doubly clipped the cystic duct securely with 5 mm clips after remove the Cholangiocath and then dissected out at the neck identifying small branches of the cystic artery coming off with a look like a high rising right hepatic artery that we left alone. As stated gallbladder was chronically inflamed we were able to elevate it both with using scissors and electrocautery once we freed from the liver bed placed in an Endopouch and taken out intact through the epigastric port what we saw the contents were just very sickly Strahl type of paste. When the subhepatic suprahepatic area was checked for stasis I elected to drain with 19 round Jerome drain that was came in in the epigastric area taken out towards the right lateral port after we converted that from a 3 to a 5 mm. The drain was placed subhepatic leg and attached to skin edge with 2-0 silk prior to closing we checked the area for hemostasis appear satisfactory individual trochars were taken on direct visualization the last 3 mm umbilical trocar was removed 4-0 Monocryl was used Steri-Strips applied procedure was tolerated well by the patient estimated blood loss 5 cc addendum Evette PENN was present throughout the whole case and helped with exposure retraction and wound closure Surgeon Mikey Monreal MD Client Relationship Manager evette penn Estimated Blood Loss 5 Findings Consistent with Post-Op Diagnosis Specimens gallbladder and contents Description of Procedure merda I attest to the content of the Intraoperative Record and any orders documented therein. Any exceptions are noted below.
[2019-10-26] MEDS: HYDROmorphone INJ 1 MG/ML SYRINGE IV PRN ×3 (09:34→09:51)
--- NOTE | 2019-10-26 09:52 | Anesthesiology Progress Note ---
Date of Service October 26, 2019 Anesthesia Post Procedure Vital Signs Vital Signs: Temp Pulse Pulse Resp BP BP Pulse Ox 10/26/19 09:40 94 H 18 140/88 93 10/26/19 09:30 95 H 16 138/85 98 10/26/19 09:20 97 H 16 163/99 H 98 10/26/19 09:10 87 20 163/89 H 98 10/26/19 09:00 81 18 151/94 H 98 10/26/19 08:58 36.3 C L 83 26 H 177/98 H 100 10/26/19 05:53 36.7 C 97 H 18 127/86 95 Pain Intensity Abdomen: Pain Intensity: 3 Transfer of Care Handoff Completed per policy Notes Mental Status: alert / awake / arousable Patient Amnestic to Procedure: Yes Nausea / Vomiting: adequately controlled Pain: adequately controlled Airway Patency, RR, SpO2: stable & adequate BP & HR: stable & adequate Hydration State: stable & adequate Anesthetic Complications: no major complications apparent and Pt Satisfied with anesthetic care
[2019-10-26] MEDS ORDERED: ALBUTEROL HFA 8 GM INHALER INH PRN (10:34)
--- NOTE | 2019-10-26 10:59 | Gastrointestinal Consultation ---
Date of Consultation October 26, 2019 Assessment & Plan (1) Cholelithiasis: 48 year old female admitted post CCY for abnormal IOC, w/o contrast to small bowel w/ persistent epigastric pain w/o nausea/vomiting NPO after midnight Will review IOC when able to load image Antiemetics PRN Analgesia PRN Plan for ERCP in the AM Thank you for allowing us to participate in the care of this patient. Please call with any acute changes, questions or concerns. Please see addendum below with additional recommendation from my supervising physician. Present on Admission?: Yes Supervising Physician Co-Signing Physician Notes Attending attestation I have seen, examined this patient, and agree with the findings and above by our mid-level provider RAPHAEL Remy, with the following additions Patient doing well post karissa IOC today without flow into duodenum Planning for biliary evalution tomorrow with Dr. Main History of Present Illness Reason for Consultation: abnormal IOC Requesting Physician: Rah Attending Physician: Mikey Monreal MD History of Present Illness 48 year old female w/ history of reactive airway disease, chronic back/pelvic pain admitted after elective CCY for abnormal IOC - GI asked to evaluate. Pt was seen and evaluated, chart reviewed. Pt drowsy, just returned to floor. Pt notes she is currently having some epigastric pain. No nausea, vomiting. No lower GI symptoms. No fever, chills, CP, SOB. LFTs normal HIDA: Nonvisualization of the gallbladder raises concern for cholecystitis. Surgical consultation is advised. ABD US: Cholelithiasis. No sonographic evidence of acute cholecystitis. Mild dilatation of the common bile duct. No common bile duct calculi identified although findings could be correlated with liver function tests. Allergies Allergy/AdvReac Type Severity Reaction Status Date / Time No Known Drug Allergies Allergy Verified 10/26/19 05:51 Home Medications Home Medications Medication Instructions Recorded Confirmed Type gabapentin 200 mg PO TID 04/02/19 10/26/19 History famotidine 20 mg tablet 20 mg PO BID 30 Days #60 tab 07/29/19 10/26/19 Rx albuterol sulfate 90 mcg/actuation 2 puff INHALATION QID PRN #18 gm 09/10/19 10/26/19 Rx aerosol inhaler fluticasone propionate 110 2 puffs INH BID #36 gm 09/22/19 10/26/19 Rx mcg/actuation HFA aerosol inhaler cetirizine 10 mg tablet 10 mg PO DAILY #30 tab 10/01/19 10/26/19 Rx lansoprazole [Prevacid] 30 mg PO QAM 10/22/19 10/26/19 History trazodone 50 mg PO HS 10/22/19 10/26/19 History umeclidinium-vilanterol [Anoro 1 puffs INH QAM 10/22/19 10/26/19 History Ellipta] hydrocodone-acetaminophen [[place]] 1 tab PO Q4H PRN #10 tab 10/26/19 Rx Patient History Medical History Anxiety Asthma stable Cholelithiases Chronic back pain Chronic obstructive pulmonary disease Diverticular disease GERD (gastroesophageal reflux disease) Osteoarthritis Surgical History (Updated 10/26/19 @ 10:33 by Katelin Mcdermott RN) History of bilateral tubal ligation History of bladder suspension procedure cystoscopy, midureteral sling: LMA#4 I-Gel, atraumatic x1 at [facility] History of cervical discectomy History of colonoscopy 1999 & 2005 History of esophagogastroduodenoscopy (EGD) Hx laparoscopic cholecystectomy (10/26/19) Laparoscopic Cholecystectomy with Cholangiogram Dr. 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 Required: No Beliefs That Will Affect Care: None marital status: Single Current Living Situation: Significant Other current occupational status: employed 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 Other Information That Helps Us Care for You: No Feels Safe at Home: Yes Safety Concerns: Feels Safe At This Time Smoking Status: Current every day smoker Tobacco Type: cigarettes ; Cigarettes Per Day: 1 PPD ; Do You Dip or Chew Tobacco: No ; Second Hand Exposure: Yes ; Tobacco Cessation Education Requested by Patient: No Hx Alcohol Use: Yes Alcohol type: hard liquor Alcohol Intake Frequency Comment: occassionally Hx Substance Use: No Review of Systems Constitutional: no fever, no chills and no fatigue Respiratory: no cough and no dyspnea Cardiovascular: no chest pain and no dyspnea Gastrointestinal: + abdominal pain (epigastric); no heartburn, no nausea, no vomiting, no coffee ground emesis, no hematemesis, no blood in stools and no melena Physical Exam Constitutional: no acute distress Neck: trachea midline Respiratory: normal respiratory effort Cardiovascular: Rate/Rhythm: regular rate Gastrointestinal (Abdomen): Percussion/Palpation: + abdomen tender and abdomen soft; no guarding and abdomen not rigid Skin: no rashes, warm and dry Results & Data ([facility]) Vital Signs (Past 12 Hours) Vital Signs Temp Pulse Pulse Resp BP BP Pulse Ox 10/26/19 10:30 37.1 C 90 18 143/89 H 95 10/26/19 10:10 95 H 20 141/86 H 93 10/26/19 10:00 36.3 C L 96 H 20 137/83 93 10/26/19 09:50 36.3 C L 95 H 19 128/98 93 10/26/19 09:40 94 H 18 140/88 93 10/26/19 09:30 95 H 16 138/85 98 10/26/19 09:20 97 H 16 163/99 H 98 10/26/19 09:10 87 20 163/89 H 98 10/26/19 09:00 81 18 151/94 H 98 10/26/19 08:58 36.3 C L 83 26 H 177/98 H 100 10/26/19 05:53 36.7 C 97 H 18 127/86 95
[2019-10-26] MEDS: MoRPHine SULFATE 4 MG/ML 1 ML CARP\\VIAL IV PRN ×4 (11:00→17:57)
[2019-10-26] MEDS: LACTATED RINGER'S 1,000 ML IV SCH ×2 (11:01→23:27)
[2019-10-26] MEDS: CETIRIZINE HCL 10 MG TABLET PO SCH (11:33)
[2019-10-26] MEDS: GABAPENTIN 100 MG CAP PO SCH ×3 (11:33→21:20)
[2019-10-26] MEDS: FAMOTIDINE 20 MG TAB PO SCH ×2 (11:34→21:21)
[2019-10-26] MEDS: UMECLIDINIUM/VILANTEROL 62.5/25MCG 7 PUFFS/INHALER INH SCH (11:35)
[2019-10-26] MEDS: FLUTICASONE FUROATE 200MCG 14 PUFFS/INHALER INH SCH (11:35)
[2019-10-26] MEDS: OXYCODONE/ACETAMINOPHEN 5mg/325mg TAB PO PRN ×3 (15:08→23:26)
[2019-10-26] MEDS ORDERED: TRAZODONE HCL 50 MG TAB PO SCH (21:00)
[2019-10-27] MEDS: MoRPHine SULFATE 4 MG/ML 1 ML CARP\\VIAL IV PRN (02:58)
--- NOTE | 2019-10-27 04:57 | Hospitalist Consultation ---
Date of Consultation October 27, 2019 Assessment & Plan (1) Hypertension: Meseret Agrawal [age]-year-old woman status post cholecystectomy yesterday, scheduled for ERCP later today who has been hypertensive since admission Hypertension Patient may not need antihypertensive therapy as an outpatient, after stress of situation and pain is resolved recommend close follow-up with outpatient to determine best course of action Renal function normal, will start patient on lisinopril No other concerns at present, patient asymptomatic apart from appropriate abdominal pain postop Choledocholithiasis ERCP scheduled for later today Supervising Physician Co-Signing Physician Notes Attending addendum: I have physically seen this patient, have supervised the medical residents activities, and agree with the H&P unless as otherwise noted. Assessment and Plan: Status post lap karissa/choledocholithiasis Scheduled for ERCP Hypertension- On no medications in the outpatient setting. Elevated blood pressure is likely a function of hospital stress and pain. Lisinopril as noted. Remainder orders notations as noted. History of Present Illness Reason for Consultation: Hypertension Requesting Physician: Yvonne Attending Physician: Mikey Monreal MD History of Present Illness Meseret Agrawal is a 48 year old woman who is day 1 post op from cholecystectomy. She was found to have an abnormal intraoperative cholangiography and was scheduled for ERCP this morning. Medicine service consulted for patient's hypertension. Patient currently feeling well minimal belly pain, normal pulse rate, normal resp rate. Patient with history of reactive airway disease, cholecystitis, chronic hip pain, status post SI joint denervation,. Patient follows regularly with Dr. Rawls's office, has never been diagnosed with hypertension. 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 She has a meeting at noon tomorrow try to secure a job with $500 for her and her coworkers and is very scared that she will be able to secure this position unless she gets out by 12. She was so upset she was brought to tears just by relating the story to me. She has been having intermittent abdominal pain though she feels it is pretty well controlled at present blood pressure 170s over 80s. Patient's mother currently on hospice was recently placed on antihypertensive therapy for the first time, otherwise no family history of hypertension. Patient denies any fevers chills, recent travel, sick exposures, chest pain, shortness of breath, cough skin rashes or any other new or concerning symptoms on review of systems. Allergies Allergy/AdvReac Type Severity Reaction Status Date / Time No Known Drug Allergies Allergy Verified 10/26/19 05:51 Home Medications Home Medications Medication Instructions Recorded Confirmed Type gabapentin 200 mg PO TID 04/02/19 10/28/19 History famotidine 20 mg tablet 20 mg PO BID 30 Days #60 tab 07/29/19 10/28/19 Rx albuterol sulfate 90 mcg/actuation 2 puff INHALATION QID PRN #18 gm 09/10/19 10/28/19 Rx aerosol inhaler fluticasone propionate 110 2 puffs INH BID #36 gm 09/22/19 10/28/19 Rx mcg/actuation HFA aerosol inhaler cetirizine 10 mg tablet 10 mg PO DAILY #30 tab 10/01/19 10/28/19 Rx Anoro Ellipta 1 puffs INH QAM 10/22/19 10/28/19 History lansoprazole [Prevacid] 30 mg PO QAM 10/22/19 10/28/19 History trazodone 50 mg PO HS 10/22/19 10/28/19 History hydrocodone-acetaminophen [[place]] 1 tab PO Q4H PRN #10 tab 10/26/19 10/28/19 Rx lisinopril 5 mg PO DAILY #30 tab 10/27/19 10/28/19 Rx Patient History Medical History Anxiety Asthma stable Cholelithiases Chronic back pain Chronic obstructive pulmonary disease Diverticular disease GERD (gastroesophageal reflux disease) Osteoarthritis Surgical History History of bilateral tubal ligation History of bladder suspension procedure cystoscopy, midureteral sling: LMA#4 I-Gel, atraumatic x1 at [facility] History of cervical discectomy History of colonoscopy 1999 & 2005 History of esophagogastroduodenoscopy (EGD) Hx laparoscopic cholecystectomy (10/26/19) Laparoscopic Cholecystectomy with Cholangiogram Dr. Monreal 10-26-19 S/P hernia surgery INCISIONAL HERNIA REPAIR= 06/18/18= MAC SEDATION AT [facility] S/P laparoscopic hysterectomy 09/2017 Family History Grandmother (Maternal) Breast cancer Colorectal cancer Cancer Mother Hypertension Other No family history of adverse response to anesthesia Social History (Updated 10/22/19 @ 11:19 by Katelin Mcdermott, ARABELLA) Preferred Language: Belarusian Communication Ability: Effective Visual Impairment: No Limitations Regulatory Affairs Director Required: No Beliefs That Will Affect Care: None marital status: Single Current Living Situation: Significant Other current occupational status: employed 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 Other Information That Helps Us Care for You: No Feels Safe at Home: Yes Safety Concerns: Feels Safe At This Time Smoking Status: Current every day smoker Tobacco Type: cigarettes ; Cigarettes Per Day: 1 PPD ; Do You Dip or Chew Tobacco: No ; Second Hand Exposure: Yes ; To bacco Cessation Education Requested by Patient: No Hx Alcohol Use: Yes Alcohol type: hard liquor Alcohol Intake Frequency Comment: occassionally Hx Substance Use: No Review of Systems Review of Systems: All systems reviewed & are unremarkable except as noted in HPI & below Physical Exam Physical Exam: Constitutional: Well-appearing 48-year-old woman appears stated age resting in bed Eyes: Extraocular muscle movements intact, pupils equal round reactive to light, ENMT: External appearance normal Neck: Supple, no enlarged thyroid, no masses Respiratory: Lung sounds vesicular chest expansion normal good air entry throughout Cardiovascular: Heart sounds dual no murmurs rubs skips or gallops, no lower limb edema Gastrointestinal: Abdomen with multiple incisions wounds JOCY drain in place, draining serosanguineous fluid soft nontender except at incisions Results & Data ([facility]) Vital Signs (Past 12 Hours) Vital Signs Temp Pulse Resp BP Pulse Ox 10/27/19 03:48 171/99 H 10/27/19 03:22 180/104 H 10/27/19 02:50 36.8 C 81 18 197/97 H 92 10/26/19 23:25 37 C 72 16 157/89 H 95 10/26/19 21:56 36.9 C 77 19 166/84 H 93 Resident Activity Tracking Resident Involvement: Resident Care Provided Care Provided: Adult Hospital Medicine
[2019-10-27 06:36] LABS: Basophils # (auto) 0.02 K/uL (0-0.2); Basophils % (auto) 0.2 %; Eosinophils # (auto) 0.03 K/uL (0-0.5); Eosinophils % (auto) 0.3 %; Hematocrit (blood only) 42.7 % (37-47); Hemoglobin 14.5 g/dL (12.0-16.0); Immature Granulocytes # (auto) 0.02 K/uL (0.00-0.02); Immature Granulocytes % (auto) 0.2 %; Lymphocytes # (auto) 1.83 K/uL (1.2-3.4); Lymphocytes % (auto) 17.2 %; Mean Corpuscular Hemoglobin 31.9 pg (25-34); Mean Corpuscular Volume 93.8 fL (80-100); Mean Platelet Volume 9.8 fL (7.4-10.4); Monocytes # (auto) 0.83 K/uL (0.11-0.59); Monocytes % (auto) 7.8 %; Neutrophils # (auto) 7.89 K/uL (1.4-6.5); Neutrophils % (auto) 74.3 %; Platelet Count 224 K/uL (130-400); RDW Coefficient of Variation 14.5 % (11.5-14.5); RDW Standard Deviation 49.3 fL (36.4-46.3); Red Blood Count 4.55 M/uL (4.2-5.4); White Blood Count 10.62 K/uL (4.8-10.8)
[2019-10-27 07:05] LABS: Albumin Level 2.7 gm/dl (3.4-5.0); BUN Creatinine Ratio 5.1 (10-20); Bilirubin Direct 0.1 mg/dl (0-0.2); Bilirubin,Total 0.5 mg/dl (0.2-1); Creatinine Clr Calc Pharmacy 85.2 ml/min; Est GFR (African American) 123.4; Est GFR (Non-African American) 106.5; Potassium 3.2 mmol/L (3.5-5.1); Total Protein 6.1 gm/dl (6.4-8.2)
--- NOTE | 2019-10-27 08:12 | Surgery Progress Note ---
Date of Service October 27, 2019 Assessment & Plan (1) S/P laparoscopic cholecystectomy: POD#1 laparoscopic cholecystectomy WBC: 10.6, Tbili: 0.5, AST: 94, Alkp:122, ALT: 125 today JOCY serosang, output Intraop cholangiogram showed no contrast going into small bowel, GI was consulted for ERCP. ERCP scheduled for today, timing to be determined. Discussed with patient her concerns regarding her job and will get back to her pending timing of procedure Medicine consulted for HTN, started lisinopril. appreciate recommendations Will discuss pt with Dr. Monreal Subjective Patient offers minimal complaints from overnight regarding her surgery. 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 She is hoping her ERCP can be scheduled early so that she can coordinate her work plans and not lose this client. Otherwise she was tolerating diet yesterday without issues and abd. pain has been manageable. Physical Exam Physical Exam: awake/alert Constitutional: somewhat distressed when talking about her job Gastrointestinal (Abdomen): Inspection/Auscultation: + abdominal surgical incision (c/d/i with steri-strips in place) and + abdominal surgical drain present (10cc serous output) Percussion/Palpation: abdomen soft Results & Data Vital Signs (Past 12 Hours) Vital Signs Temp Pulse Pulse Resp BP BP Pulse Ox 10/27/19 07:13 36.7 C 72 18 180/103 H 180/103 H 92 10/27/19 05:15 179/88 H 10/27/19 03:48 171/99 H 10/27/19 03:22 180/104 H 10/27/19 02:50 36.8 C 81 18 197/97 H 92 10/26/19 23:25 37 C 72 16 157/89 H 95 10/26/19 21:56 36.9 C 77 19 166/84 H 93 PG Care Time/CCT Total # of Minutes Spent Total Time Spent with Patient: Total time spent is greater than 50% in coordination of care (as documented) at patient's floor/unit and/or counseling patient: Coding Level of Care Code None Diagnoses S/P laparoscopic cholecystectomy Z90.49
[2019-10-27] MEDS: OXYCODONE/ACETAMINOPHEN 5mg/325mg TAB PO PRN ×2 (08:21→15:51)
--- NOTE | 2019-10-27 08:36 | Gastroenterology Progress Note ---
Date of Service October 27, 2019 Assessment & Plan (1) Cholelithiasis: 48 year old female admitted post CCY for abnormal IOC, w/o contrast to small bowel w/ persistent epigastric pain w/o nausea/vomiting. NPO for EUS/ERCP this AM, morning labs with mild, new transaminitis. No fever, WBC elevation - NPO except medications with a sip of water - EUS/ERCP today as scheduled - Antiemetics PRN - Analgesia PRN - Work conflict today at 1300 - Cant work remotely - GI will contact ERCP physician to check on availability - Discussed cannot drive/work herself same day as sedation Thank you for allowing us to participate in the care of this patient. Please call with any acute changes, questions or concerns. Please see addendum below with additional recommendation from my supervising physician. Admission and Anticipated Discharge Date Admission Date: October 26, 2019 Supervising Physician Co-Signing Physician Notes Attending attestation I have seen, examined this patient, and agree with the findings and above by our mid-level provider RAPHAEL Remy, with the following additions -Planning for ERCP this afternoon Subjective Pt was seen and evaluated, chart reviewed LFTs noted to be elevated this AM Mild abd pain No nausea, vomiting No fever No WBC elevation She is very upset. Last evening was made aware of a work job she would need to bid on by today around 1300. She tells me she has a few employees under her who depend on money based on this this. She was made aware of OR time for procedure around 1400 and is upset by this. Review of Systems Constitutional: no fever and no chills Respiratory: no cough and no dyspnea Cardiovascular: no chest pain and no dyspnea Gastrointestinal: + abdominal pain; no coffee ground emesis, no hematemesis, no blood in stools and no melena Physical Exam Constitutional: no acute distress Neck: trachea midline Respiratory: normal respiratory effort Cardiovascular: Rate/Rhythm: regular rate Gastrointestinal (Abdomen): Percussion/Palpation: + abdomen tender and abdomen soft; no guarding and abdomen not rigid Skin: no rashes, warm and dry Results & Data ([facility]) Vital Signs (Past 12 Hours) Vital Signs Temp Pulse Pulse Resp BP BP Pulse Ox 10/27/19 07:13 36.7 C 72 18 180/103 H 180/103 H 92 10/27/19 05:15 179/88 H 10/27/19 03:48 171/99 H 10/27/19 03:22 180/104 H 10/27/19 02:50 36.8 C 81 18 197/97 H 92 10/26/19 23:25 37 C 72 16 157/89 H 95 10/26/19 21:56 36.9 C 77 19 166/84 H 93 Laboratory Results 10/27/19 10/27/19 Range/Units 05:59 05:59 WBC 10.62 (4.8-10.8) K/uL RBC 4.55 (4.2-5.4) M/uL Hgb 14.5 (12.0-16.0) g/dL Hct 42.7 (37-47) % MCV 93.8 (80-100) fL MCH 31.9 (25-34) pg MCHC 34.0 (32-36) g/dL RDW Std Deviation 49.3 H (36.4-46.3) fL RDW Coeff of Chantelle 14.5 (11.5-14.5) % Plt Count 224 (130-400) K/uL MPV 9.8 (7.4-10.4) fL Immature Gran % (Auto) 0.2 % Neut % (Auto) 74.3 % Lymph % (Auto) 17.2 % Green % (Auto) 7.8 % Eos % (Auto) 0.3 % Baso % (Auto) 0.2 % Immature Gran # (Auto) 0.02 (0.00-0.02) K/uL Neut # (Auto) 7.89 H (1.4-6.5) K/uL Lymph # (Auto) 1.83 (1.2-3.4) K/uL Green # (Auto) 0.83 H (0.11-0.59) K/uL Eos # (Auto) 0.03 (0-0.5) K/uL Baso # (Auto) 0.02 (0-0.2) K/uL Sodium 139 (136-145) mmol/L Potassium 3.2 L D (3.5-5.1) mmol/L Chloride 108 H (98-107) mmol/L Carbon Dioxide 26 (21-32) mmol/L Anion Gap 5.0 (3-11) BUN 3 L D (7-18) mg/dl Creatinine 0.61 (0.6-1.2) mg/dl Est Cr Clr Drug Dosing 85.2 ml/min Est GFR ( Amer) 123.4 Est GFR (Non-Af Amer) 106.5 BUN/Creatinine Ratio 5.1 L (10-20) Glucose 110 H (70-99) mg/dl Calcium 8.0 L (8.5-10.1) mg/dl Total Bilirubin 0.5 (0.2-1) mg/dl Direct Bilirubin 0.1 (0-0.2) mg/dl AST 94 H (15-37) U/L ALT 125 H (12-78) U/L Alkaline Phosphatase 122 H (45-117) U/L Total Protein 6.1 L (6.4-8.2) gm/dl Albumin 2.7 L (3.4-5.0) gm/dl
[2019-10-27] MEDS ORDERED: lisinopriL 5 MG TAB PO SCH (09:00)
[2019-10-27] MEDS: UMECLIDINIUM/VILANTEROL 62.5/25MCG 7 PUFFS/INHALER INH SCH (10:03)
[2019-10-27] MEDS: CETIRIZINE HCL 10 MG TABLET PO SCH (10:03)
[2019-10-27] MEDS: FLUTICASONE FUROATE 200MCG 14 PUFFS/INHALER INH SCH (10:04)
[2019-10-27] MEDS: GABAPENTIN 100 MG CAP PO SCH ×2 (10:05→14:33)
[2019-10-27] MEDS: FAMOTIDINE 20 MG TAB PO SCH (10:06)
--- NOTE | 2019-10-27 12:31 | Anesthesiology Consultation ---
Date of Service October 27, 2019 Assessment & Plan (1) Encounter for pre-operative examination: Chart Review Chart Review: Acceptable Risk for Surgery and Patient NOT seen in Pre Admission Testing Consults Requested none History Surgery Operation Date: 10/26/19 07:00 Proposed Procedures p Laparoscopic Cholecystectomy with Cholangiogram, Possible Open with Cholecystectomy - Mikey Monreal MD Operation Date: 10/27/19 14:00 Proposed Procedures p Endoscopic Retrograde Cholangiopancreatogram - Sridevi Main Height/Weight Height: 4 ft 11.5 in Weight: 54.431 kg Allergies Allergy/AdvReac Type Severity Reaction Status Date / Time No Known Drug Allergies Allergy Verified 10/26/19 05:51 Medications Home Medications Medication Instructions Recorded Confirmed Last Taken gabapentin 200 mg PO TID 04/02/19 10/26/19 10/24/19 famotidine 20 mg tablet 20 mg PO BID 30 Days #60 tab 07/29/19 10/26/19 10/25/19 19:00 albuterol sulfate 90 mcg/actuation 2 puff INHALATION QID PRN #18 gm 09/10/19 0 10/26/19 10/25/19 19:00 aerosol inhaler fluticasone propionate 110 2 puffs INH BID #36 gm 09/22/19 10/26/19 10/25/19 19:00 mcg/actuation HFA aerosol inhaler cetirizine 10 mg tablet 10 mg PO DAILY #30 tab 10/01/19 10/26/19 10/25/19 08:00 lansoprazole [Prevacid] 30 mg PO QAM 10/22/19 10/26/19 10/25/19 08:00 trazodone 50 mg PO HS 10/22/19 10/26/19 10/25/19 21:00 umeclidinium-vilanterol [Anoro 1 puffs INH QAM 10/22/19 10/26/19 10/26/19 04:30 Ellipta] hydrocodone-acetaminophen [[place]] 1 tab PO Q4H PRN #10 tab 10/26/19 Unknown Active Medications Generic Name Dose Route Start Last Admin Trade Name Freq PRN Reason Stop Dose Admin Cetirizine HCl 10 mg 10/26/19 10:34 10/27/19 10:03 Zyrtec PO 11/25/19 10:33 Not Given DAILY REKHA Famotidine 20 mg 10/26/19 10:34 10/27/19 10:06 Pepcid PO 11/25/19 10:33 20 mg BID REKHA Administration Fluticasone Furoate 1 puffs 10/26/19 10:34 10/27/19 10:04 Arnuity Ellipta 200mcg INH 11/25/19 10:33 1 puffs QAM REKHA Administration Protocol Gabapentin 200 mg 10/26/19 10:34 10/27/19 10:05 Neurontin PO 11/25/19 10:33 200 mg TID REKHA Administration Lactated Ringer's 1,000 mls @ 75 mls/hr 10/26/19 10:34 10/27/19 12:02 Lr IV 11/25/19 10:33 0 mls/hr .[id number] REKHA Infusion Lisinopril 5 mg 10/27/19 09:00 10/27/19 10:06 Zestril PO 11/26/19 08:59 5 mg QAM REKHA Administration Morphine Sulfate 2 mg 10/26/19 10:34 10/27/19 02:58 Morphine Sulfate IV 11/09/19 10:33 2 mg Q2H PRN Administration MODERATE Pain (Scale 4,5,6) Oxycodone/Acetaminophen 1 tab 10/26/19 10:34 10/26/19 15:08 Percocet 5mg/325mg PO 11/09/19 10:33 1 tab Q4H PRN Administration MODERATE Pain (Scale 4,5,6) Oxycodone/Acetaminophen 2 tab 10/26/19 10:34 10/27/19 08:21 Percocet 5mg/325mg PO 11/09/19 10:33 2 tab Q4H PRN Administration SEVERE Pain (Scale 7,8,9,10) Trazodone HCl 50 mg 10/26/19 21:00 10/26/19 21:20 Desyrel PO 11/25/19 20:59 50 mg HS REKHA Administration Umeclidinium/Vilanterol 1 puffs 10/26/19 10:34 10/27/19 10:03 Anoro Ellipta 62.5/25 Mcg Inh INH 11/25/19 10:33 1 puffs QAM REKHA Administration NPO Date Last Intake of Fluids: 10/27/19 Time Last Intake of Fluids: 22:00 Last Intake of Fluids Comment: sips with meds Date Last Intake of Solids: 10/27/19 Time Last Intake of Solids: 22:00 Past Medical History Medical History Anxiety Asthma stable Cholelithiases Chronic back pain Chronic obstructive pulmonary disease Diverticular disease GERD (gastroesophageal reflux disease) Osteoarthritis Exercise / Class Metabolic Activity II 4-5 Yardwork/Stairs/Walk up hill Past Family History Family History Grandmother (Maternal) Breast cancer Colorectal cancer Cancer Mother Hypertension Other No family history of adverse response to anesthesia Past Surgical History Surgical History History of bilateral tubal ligation History of bladder suspension procedure cystoscopy, midureteral sling: LMA#4 I-Gel, atraumatic x1 at [facility] History of cervical discectomy History of colonoscopy 1999 & 2005 History of esophagogastroduodenoscopy (EGD) Hx laparoscopic cholecystectomy (10/26/19) Laparoscopic Cholecystectomy with Cholangiogram Dr. Monreal 10-26-19 S/P hernia surgery INCISIONAL HERNIA REPAIR= 06/18/18= MAC SEDATION AT [facility] S/P laparoscopic hysterectomy 09/2017 Past Anesthesia History No Hx of Anesthesia Complications and No Family Hx of Anesthesia Complications History of PONV No Hx of PONV and No Hx of Motion Sickness Social History Smoking Status: Current every day smoker tobacco type: cigarettes Smoking cigarettes per day: 1 PPD Do You Dip or Chew Tobacco: No Hx Alcohol Use: Yes Alcohol type: hard liquor alcohol intake frequency: holidays/special occasions only Hx Substance Use: No substance use type: does not use Physical Exam Vital Signs Last Vital Signs Temp 37 C 10/27/19 12:25 Pulse 88 10/27/19 12:25 Resp 20 10/27/19 12:25 BP 169/95 H 10/27/19 12:25 Pulse Ox 92 10/27/19 07:13 Testing Laboratory Results 10/27/19 05:59 10/27/19 05:59 Chest X-Ray Date: 06/03/19 The lungs appear hyperinflated and hyperlucent with flattening the diaphragm and increased retrosternal clear space. This suggests obstructive physiology. There is no airspace consolidation or pleural effusion. There is no pneumothorax. The bony thorax appears intact. Fusion hardware is noted in the lower cervical spine. IMPRESSION: Emphysema is change with no active disease in the chest. Pulmonary Function Test Date: 06/08/19 Spirometry consistent with mild obstructive pattern. Repeat study done following bronchodilator showed no significant change in function. Comparison with prior study done 07/06/18 shows there has been a modest decline in both forced and vital capacity and FEV1.
[2019-10-27] MEDS ORDERED: ONDANSETRON INJ 2 MG/ML 2 ML VIAL ONE (12:34)
[2019-10-27] MEDS ORDERED: PROPOFOL IV EMULSION 10 MG/ML 20 ML VIAL IV ONE (12:34)
[2019-10-27] MEDS ORDERED: DEXAMETHASONE SOD INJ 4 MG/ML VIAL ONE (12:34)
[2019-10-27] MEDS ORDERED: fentaNYL citrate 100 MCG/2 ML VIAL ONE ×2 (12:34→13:59)
[2019-10-27] MEDS ORDERED: MIDAZOLAM HCL 1 MG/ML 2ML VIAL ONE (12:34)
[2019-10-27] MEDS ORDERED: LIDOCAINE HCL 2% 2 ML VIAL/AMP(20MG/ML) INFIL ONE (12:34)
[2019-10-27] MEDS ORDERED: ONDANSETRON INJ 2 MG/ML 2 ML VIAL IV PRN (12:38)
[2019-10-27] MEDS ORDERED: ePHEDrine sulfate 50 MG/ML AMP IV PRN (12:38)
[2019-10-27] MEDS ORDERED: fentaNYL citrate 100 MCG/2 ML VIAL IV PRN (12:38)
[2019-10-27] MEDS ORDERED: ATROPINE SULFATE 0.1 MG/ML 10ML SYR IV PRN (12:38)
[2019-10-27] MEDS ORDERED: HYDROmorphone INJ 1 MG/ML SYRINGE IV PRN (12:38)
--- NOTE | 2019-10-27 13:05 | Anesthesiology Progress Note ---
Date of Service October 27, 2019 Anesthesia Post Procedure Vital Signs Vital Signs: Temp Pulse Pulse Resp BP BP Pulse Ox 10/27/19 12:25 37 C 88 20 169/95 H 10/27/19 10:02 75 163/99 H 10/27/19 07:13 36.7 C 72 18 180/103 H 180/103 H 92 10/27/19 05:15 179/88 H 10/27/19 03:48 171/99 H 10/27/19 03:22 180/104 H 10/27/19 02:50 36.8 C 81 18 197/97 H 92 10/26/19 23:25 37 C 72 16 157/89 H 95 10/26/19 21:56 36.9 C 77 19 166/84 H 93 10/26/19 14:31 36.8 C 96 H 18 152/96 H 91 10/26/19 13:30 97 Pain Intensity Abdomen: Pain Intensity: 6 Notes Mental Status: alert / awake / arousable and participated in evaluation Patient Amnestic to Procedure: Yes Nausea / Vomiting: see Notes below Pain: adequately controlled Airway Patency, RR, SpO2: stable & adequate BP & HR: stable & adequate Hydration State: stable & adequate Anesthetic Complications: no major complications apparent and Pt Satisfied with anesthetic care
[2019-10-27] MEDS ORDERED: INDOMETHACIN 50 MG SUPP PR ONE ×2 (13:12→13:17)
--- NOTE | 2019-10-27 13:15 | Communication Note ---
Date of Service: October 27, 2019 Patient seen by overnight resident, see morning note. Patient revisiting in the morning, was anxious and tearful on discussion. Reports she was very anxious to make a work appointment as and was concerned if she was unable to be discharged by noon she would lose the contract. Discussed with pt that her liver enzymes has increased, and that it medically recommended she remain until ERCP could be performed which would be at 1:30pm at earlier. Discussed alternatives with pt including calling a coworker to cover the meeting to which patient was relucta nt, but amenable. Case discussed with GI. Pt to remain NPO with meds pending procedure. Update 1442: Pt underwent ERCP. Spincterotomy and balloon removal of choledocolithiasis performed. Pt's hypertension improved, ?acute stress and pain induced. May discontinue lisinopril with followup for BP check by PCP if Sys BP <150. If sys BP postsurgically is >150 then D/c on 5mg of lisinopril with f/u to PCP and BMP in 1-2 weeks to check renal function. Discharge and planning per primary surgical team. Discussed with surgical team. I personally examined the patient and verified all vázquez points of history and exam, discussed case, and agree with decision making with Dr Costello. ready to leave. discussed BP - she has a cuff and can monitor at home, has noted typically runs low but more recently thinks a lot of life stressors have led to running higher. asymptomatic from BP standpoint though and appears safe for home as above Resident Activity Tracking Resident Involvement: Resident Care Provided Care Provided: Adult Hospital Medicine
--- NOTE | 2019-10-27 13:16 | History & Physical Bridge Note ---
Date of Service October 27, 2019 History & Physical Bridge Note I have examined the patient, reviewed the History & Physical and in the interval since the performance of the History & Physical I have noted the following changes of clinical significance: no changes noted. ERCP planned due to an abnormal IOC during cholecystectomy on Friday. we have discussed the risk of ERCP to include bleeding, infection, perforation, pain, pancreatitis and failed biliary cannulation.
--- NOTE | 2019-10-27 14:03 | GI REPORT ---
Patient Name: Meseret Agrawal Procedure Date: 10/27/2019 1:27 PM Date of : 1970 Admit Type: Inpatient Age: 48 Gender: Female Attending MD: Sridevi Main DO Procedure: ERCP Providers: Sridevi Main DO Referring MD: Dao Molina Indications: Abdominal pain of suspected biliary origin, Abnormal intraoperative cholangiogram Medicines: General Anesthesia Complications: No immediate complications. Estimated blood loss: Minimal. Estimated Blood Loss: Estimated blood loss was minimal. Procedure: Pre-Anesthesia Assessment: - Prior to the procedure, a History and Physical was performed, and patient medications, allergies and sensitivities were reviewed. The patient's tolerance of previous anesthesia was reviewed. - The risks and benefits of the procedure and the sedation options and risks were discussed with the patient. All questions were answered and informed consent was obtained. - Patient identification and proposed procedure were verified prior to the procedure by the physician, the nurse and the brake operator. The procedure was verified in the procedure room. - Pre-procedure physical examination revealed no contraindications to sedation. - ASA Grade Assessment: II - A patient with mild systemic disease. - After reviewing the risks and benefits, the patient was deemed in satisfactory condition to undergo the procedure. - The anesthesia plan was to use general anesthesia. - Immediately prior to administration of medications, the patient was re-assessed for adequacy to receive sedatives. - The heart rate, respiratory rate, oxygen saturations, blood pressure, adequacy of pulmonary ventilation, and response to care were monitored throughout the procedure. - The physical status of the patient was re-assessed after the procedure. After obtaining informed consent, the scope was passed under direct vision. Throughout the procedure, the patient's blood pressure, pulse, and oxygen saturations were monitored continuously. The SCOPE was introduced through the mouth, and advanced to the duodenum and used to inject contrast into the bile duct. The ERCP was accomplished without difficulty. The patient tolerated the procedure well. Findings: A sock turner film of the abdomen was obtained. Surgical clips, consistent with a previous cholecystectomy, were seen in the area of the right upper quadrant of the abdomen. The esophagus was successfully intubated under direct vision without detailed examination of the pharynx, larynx, and associated structures, and upper GI tract. The upper GI tract was grossly normal. The major papilla was normal. The bile duct was deeply cannulated with the short-nosed traction sphincterotome and guidewire. Contrast was injected. I personally interpreted the bile duct images. Contrast etended to the entire biliary tree. The biliary orifice was stenotic. This appeared benign. The main bile duct was moderately dilated. The largest diameter was 11mm. The lower third of the main bile duct contained severL filling defects thought to be stones. A small amount of extravasation of contrast originating from the cystic duct remanent was observed. Biliary sphincterotomy was made with a monofilament Fusion OMNI sphincterotome using ERBE electrocautery. There was no post-sphincterotomy bleeding. To discover objects, the biliary tree was swept with a 15 mm balloon starting at the bifurcation multiple times. Many small yellow pigmented stones were removed. No stones remained. One 10 Fr by 7 cm biliary stent with a single external flap and a single internal flap was placed 7 cm into the common bile duct due to the suspected bile leak. Bile flowed through the stent. The stent was in good position. The endoscope was withdrawn from the patient. The total fluoroscopy exposure time was 1 minute and 14 seconds. Indomethacin 100 mg was given via suppository to decrease the risk of post-ERCP pancreatitis (PEP). Impression: - Choledocholithiasis was found. Complete removal was accomplished by biliary sphincterotomy and balloon extraction. - A low grade bile leak was found. This was treated with bilary stent placement. - Indomethacin given to decrease risk of post-ERCP pancreatitis. Recommendation: - Avoid aspirin and nonsteroidal anti-inflammatory medicines for 1 week. - Clear liquid diet today. - Repeat ERCP in 6 weeks to remove stent. Sridevi Main D.O. Sridevi Main, 10/27/2019 2:02:37 PM This report has been signed electronically. Note Initiated On: 10/27/2019 1:27 PM Number of Addenda: 0 I attest to the content of the Intraoperative Record and orders documented therein, exceptions below {[id number]}
--- NOTE | 2019-10-27 14:04 | Post Operative Brief Note ---
Immediate Post Op Note v1 Date of Surgery October 27, 2019 Pre & Post Diagnosis Operation Date: 10/26/19 07:00 Pre-Op Diagnosis: Cholelithiasis Post-Op Diagnosis: Cholelithiasis Operation Date: 10/27/19 14:00 Pre-Op Diagnosis: Choledocholithiasis Post-Op Diagnosis: Choledocholithiasis I identified the patient and participated in the time-out.: Yes Procedure Operation Date: 10/27/19 14:00 Actual Procedures p Endoscopic Retrograde Cholangiopancreatogram - Sridevi Main Surgeon Sridevi Main Projection Engineer none Estimated Blood Loss 0 Findings Consistent with Post-Op Diagnosis
--- NOTE | 2019-10-27 14:07 | Fluoroscopy Report ---
[place] ERCP biliary ductal CLINICAL HISTORY: ERCP IN OR COMPARISON STUDY: None FLUOROSCOPY TIME: 1 minute 15 seconds NUMBER OF FLUOROSCOPIC IMAGES: 11 FINDINGS: ERCP followed by successful common bile duct stent placement IMPRESSION: ERCP followed by successful common bile duct stent placement. ACT 112: Negative or not required by law. The above report was generated using voice recognition software. It may contain grammatical, syntax or spelling errors. Electronically signed by: Ventura Trinh M.D. 10/27/2019 2:06 PM
--- NOTE | 2019-10-27 14:43 | Anesthesiology Progress Note ---
Date of Service October 27, 2019 Anesthesia Post Procedure Vital Signs Vital Signs: Temp Pulse Pulse Resp BP BP Pulse Ox 10/27/19 14:30 90 18 154/98 H 93 10/27/19 14:20 104 H 20 157/106 H 95 10/27/19 14:10 100 H 20 153/97 H 95 10/27/19 14:07 36.6 C 99 H 20 145/90 H 95 10/27/19 12:25 37 C 88 20 169/95 H 10/27/19 10:02 75 163/99 H 10/27/19 07:13 36.7 C 72 18 180/103 H 180/103 H 92 10/27/19 05:15 179/88 H 10/27/19 03:48 171/99 H 10/27/19 03:22 180/104 H 10/27/19 02:50 36.8 C 81 18 197/97 H 92 10/26/19 23:25 37 C 72 16 157/89 H 95 10/26/19 21:56 36.9 C 77 19 166/84 H 93 Pain Intensity Abdomen: Pain Intensity: 6 Transfer of Care Handoff Completed per policy Notes Mental Status: alert / awake / arousable and participated in evaluation Patient Amnestic to Procedure: Yes Nausea / Vomiting: adequately controlled Pain: adequately controlled Airway Patency, RR, SpO2: stable & adequate BP & HR: stable & adequate Hydration State: stable & adequate Anesthetic Complications: no major complications apparent and Pt Satisfied with anesthetic care
[2019-10-27 15:36] VITALS: BP 159/98; PULSE 80; TEMP 98.8; O2SAT 93
--- NOTE | 2019-10-28 09:16 | Discharge Summary ---
Date of Service October 28, 2019 Principal Diagnosis s/p laparoscopic cholecystectomy choledocholithiasis Discharge Exam awake/alert Gastrointestinal (Abdomen) Inspection/Auscultation: + abdominal surgical incision (c/d/i with steri-strips in place) and + abdominal surgical drain present (serousangenious output) Percussion/Palpation: abdomen soft Discharge Data Allergies Allergy/AdvReac Type Severity Reaction Status Date / Time No Known Drug Allergies Allergy Verified 10/26/19 05:51 Consultations 10/26/19 10:34 Consult Gastroenterology Routine 10/27/19 04:31 Consult Hospitalist Routine Procedures Performed Operation Date: 10/26/19 07:00 Actual Procedures p Laparoscopic Cholecystectomy with Cholangiogram(Not Applicable) - Mikey Monreal MD Operation Date: 10/27/19 14:00 Actual Procedures p Endoscopic Retrograde Cholangiopancreatogram - Sridevi Main Ordered Studies 10/26/19 07:00 [place] cholangiogram OR Routine 10/27/19 14:00 [place] ERCP biliary ductal Routine Hospital Course (1) S/P laparoscopic cholecystectomy: This is a 48y F who presented to the [facility] on 10/26/19 for an elective laparoscopic cholecystectomy with Dr. Monreal. The patient tolerated the procedure well, see op note for full details. An intraop cholangiogram was performed that revealed no flow of contrast through the small bowel. A JOCY drain was left in place. The patient was admitted for overnight observation and GI was consulted. GI evaluated the patient and agreed with performing an ERCP the following day. Her pain was managed with prn pain medications, and she tolerated a diet and then made NPO at midnight. Medicine was consulted for persistent HTN post operatively and they started her on Lisinopril. On 10/26 the patient underwent an ERCP with GI where they found choledocholithiasis and removed stones and placed a biliary stent for concern for bile leak. She returned to the surgical nursing floor without event. She was instructed to continue a clear liquid diet on 10/26 and then advance the next day if feeling well. On 10/26 after her ERCP she was deemed stable for discharge to home. Her pain remained well controlled, she was voiding without issues, and surgical incisions clean and intact. Medicine recommended she be discharged on a low dose of Lisinopril with instructions or the patient to follow up with her PCP within 1 week for blood work and bp check. She was discharged with her JOCY drain in place (education provided by RN's) and she was asked to follow up in surgery clinic on Friday10/29/19. GI was planning to schedule her an appointment in 4-6 weeks to remove her biliary stent. Patient agreeable with plan and she was discharged to home in stable condition. Total Time Total Time Spent Total Time Spent (In Minutes): 15 Discharge Plan Discharge Items Patient Disposition: Home - Self-Care Reason For Visit: Cholelithiasis Discharge Diagnosis: laparoscopic cholecystectomy Activity: Resume your previous activity Lifting: No more than 10 pounds Bathing Comment: can shower today, no soaking in tubs Exercise/Sports: Wait until after follow-up appointment Driving/Machine Use: do not resume driving while taking narcotics for pain Non-emergency contact: Surgeon Call non-emergency contact if: you have any medication questions, your pain is not controlled, you have a fever, your temperature is above 101.5, your wound has increased redness, your wound has increased drainage and your wound pain has increased Follow-up/Referrals: Power Rawls III, MD [Primary Care Provider] - Mikey Monreal MD [Surgeon] - 10/29/19 9:00 am (Please call to schedule an appointment in clinic this upcoming Friday10/29/19.) Diet: Regular Addtl Attending Provider Instructions: You will be discharged with a surgical drain in place. Please care for this drain as you have been instructed to do so prior to discharge from the hospital. Please call to schedule an appointment with Dr. Monreal this upcoming Friday10/29/19. Please expect a phone call from the Gastroenterology clinic for a follow up ERCP to remove your biliary stent. Your follow up for this should be in 4-6 weeks. If you have not heard from them with an appointment in 1 week please call the clinic at [phone] to schedule an appointment. You should remain on a clear liquid diet today (10/27/19) per the GI team. If you are feeling well tomorrow you may advance your diet as tolerates. Please avoid taking Aspirin and any NSAIDS (non-steroidal anti-inflammatory medications), such as Advil and Ibuprofen for 1 week after your ERCP. You should follow up with your Primary Care Provider within 1-2 weeks for a blood pressure check and to have some blood work taken for a BMP to check your renal function. It was elevated during your admission, but could be contributed to multiple factors such as surgical procedures, pain, and anxiety therefore it should be re-checked. We are planning to send you home on a low dose blood pressure medication called Lisinopril (5mg daily) Pending Studies at Discharge: No Stand-Alone Forms: [facility], Opioid Pain Management, Smoking Cessation Medications and DC Order Prescriptions: New hydrocodone-acetaminophen [[place]] 10-325 mg tablet 1 tab PO Q4H PRN (Reason: pain) Qty: 10 RF: 0 lisinopril 5 mg tablet 5 mg PO DAILY Qty: 30 RF: 0 Continued famotidine 20 mg tablet 20 mg PO BID 30 Days Qty: 60 RF: 11 albuterol sulfate 90 mcg/actuation HFA aerosol inhaler 2 puff INHALATION QID PRN (Reason: SOB) Qty: 18 RF: 3 Flovent HFA 110 mcg/actuation HFA aerosol inhaler 2 puffs INH BID Qty: 36 RF: 11 cetirizine 10 mg tablet 10 mg PO DAILY Qty: 30 RF: 5 gabapentin 100 mg Capsule 200 mg PO TID RF: 0 trazodone 50 mg tablet 50 mg PO HS RF: 0 lansoprazole [Prevacid] 30 mg capsule,delayed release(DR/EC) 30 mg PO QAM RF: 0 Anoro Ellipta 62.5-25 mcg/actuation blister with device 1 puffs INH QAM RF: 0 Discharge Orders: Discharge Order (Routine); Ordered 10/27/19 Ordered By: Usha Pereira Admission Data Admit Date/Time: 10/26/19 08:58 Attending Provider: Dao Harrell Admit Provider: Mikey Monreal Primary Care Provider: Power Rawls III Other Providers: Mikey Monreal ; Catrachito Elliott ; Quinten Velarde Other Interventions: Discharge Summary Assessment (RN) Last Done: 10/27/19 15:40 DC Date/Time DO NOT enter until pt leaves facility: 10/27/19 16:16 Coding Level of Care Code D/C Day Management <30 mins Diagnoses S/P laparoscopic cholecystectomy Z90.49
--- NOTE | 2019-10-29 03:12 | Billing Data ---
Date of Service October 29, 2019 Coding Level of Care Code 16955 Inpt Consult Level 3
== END 2019-10-27 16:16 | disposition home or self-care (01) ==
LOC: 3N 05:37 → ASU 05:37 → SUATTDRO 08:58